=== PATIENT | male | born 1935 | race Caucasian/White ===

== ENCOUNTER 2016-07-22 10:53 | Observation (INO) | payer OTHER, MEDICARE ==
[2016-07-22] MEDS ORDERED: Zithromax 500 MG/ 250 ML NaCl Premix 250 ML IV ONE ×2 (11:01→11:12)
[2016-07-22] MEDS ORDERED: solu-MEDROL 125 MG IV ONE (11:01)
[2016-07-22] MEDS ORDERED: PROVENTIL Solution 2.5 MG/0.5 ML IH ONE ×2 (11:01→11:23)
[2016-07-22] MEDS ORDERED: ROCEPHIN 1 Gm-D5w 50 ml Bag** 50 ML IV ONE ×2 (11:01→11:12)
[2016-07-22] MEDS ORDERED: Sodium Chloride 3 ML UD NEBULES IH ONE (11:01)
[2016-07-22] MEDS ORDERED: Sodium Chloride 0.9% 1000 ML 1,000 ML IV STA (11:01)
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
[2016-07-22] MEDS ORDERED: solu-MEDROL 125 MG ONE (11:12)
[2016-07-22] MEDS ORDERED: Sodium Chloride 0.9% 1000 ML 1,000 ML ONE (11:12)
[2016-07-22 11:22] LABS: A-aADO2 34; ALLEN TEST OK? YES; ARTERIAL BLD GAS O2 SATURATION 97.4 % (95-100); ARTERIAL BLOOD GAS BASE EXCESS 1.1 (-2.0-2.0); ARTERIAL BLOOD GAS FIO2 21 %; ARTERIAL BLOOD GAS PO2 79 mmHg (75-100); ARTERIAL BLOOD GAS pH 7.51 (7.35-7.45)
[2016-07-22 11:27] LABS: Mean Cell Volume 86.4 fl (78-100); Mean Corpuscular Hemoglobin 28.7 pg (26-32); Mean Platelet Volume 10.7 fl (6-9.5); Platelet Count 178 K/mm3 (150-450); Red Blood Count 4.99 M/mm3 (4.1-5.6); White Blood Count 6.9 K/mm3 (4.0-10.5)
--- NOTE | 2016-07-22 11:37 | XRAY ---
Short of breath. Comparison: September 02, 2014. Portable chest again hyperinflated with bilateral mid to lower lung infiltrate/atelectasis similar to the prior study. No consolidation/large effusion. Heart is not enlarged. Bony thorax intact.
[2016-07-22 11:48] LABS: ALBUMIN 3.6 g/dL (3.4-5.0); ALKALINE PHOSPHATASE 66 U/L (46-116); ANION GAP 16.5 MEQ/L (5-15); BILIRUBIN,TOTAL 0.3 mg/dL (0.2-1.0); BLOOD UREA NITROGEN 13 mg/dL (9-20); CHLORIDE 102 mEq/L (98-107); Carbon Dioxide 23.1 mEq/L (21-32); Glucose 122 MG/DL (70-110); MAGNESIUM 1.6 mg/dL (1.8-2.4); Potassium 3.9 mEq/L (3.5-5.1); SGOT/AST 24 U/L (15-37); SGPT/ALT 27 U/L (12-78); SODIUM 138 mEq/L (136-145); Total Protein 6.6 gm/dL (6.4-8.2)
[2016-07-22 11:49] LABS: TROPONIN < 0.017 ng/ml (0.000-0.056)
[2016-07-22 11:59] LABS: BAND 1 % (0.0-2.0); Platelet Estimate NORMAL (NORMAL); Total Cells Counted 100; Toxic Granulation 1+
[2016-07-22] MEDS ORDERED: Xopenex 1.25 MG/0.5 ML UD NEBULE IH PRN (12:30)
[2016-07-22] MEDS ORDERED: TYLENOL 325 MG PO PRN (12:31)
[2016-07-22] MEDS: DUONEB 0.5-3 MG/3 ml Neb IH SCH ×3 (14:35→23:02)
[2016-07-22] MEDS: Sodium Chloride 0.9% 1000 ML 1,000 ML IV SCH (16:25)
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
[2016-07-22] MEDS: solu-MEDROL 125 MG IV SCH (17:46)
[2016-07-22] MEDS: PATIENT OWN MEDICATION IH SCH (19:00)
[2016-07-22] MEDS: Pepcid 20 MG VIAL IV SCH (23:04)
[2016-07-23] MEDS: solu-MEDROL 125 MG IV SCH ×4 (01:01→17:17)
[2016-07-23 05:43] LABS: BASOPHIL % 0.2 % (0.0-0.4); Granulocytes % 92.7 % (36.0-66.0); Lymphocytes % 4.9 % (24.0-44.0); Mean Cell Volume 86.9 fl (78-100); Mean Corpuscular Hemoglobin 28.3 pg (26-32); Mean Platelet Volume 10.8 fl (6-9.5); Monocytes % 2.2 % (0.0-12.0); Platelet Count 163 K/mm3 (150-450); Red Cell Distribution Width 13.9 % (11.5-14.0); White Blood Count 5.1 K/mm3 (4.0-10.5)
[2016-07-23 05:47] LABS: ANION GAP 17.6 MEQ/L (5-15); BLOOD UREA NITROGEN 15 mg/dL (9-20); CHLORIDE 107 mEq/L (98-107); Carbon Dioxide 22.4 mEq/L (21-32); Glucose 203 MG/DL (70-110); SODIUM 143 mEq/L (136-145)
[2016-07-23] MEDS: Sodium Chloride 0.9% 1000 ML 1,000 ML IV SCH ×2 (05:47→19:42)
[2016-07-23] MEDS: DUONEB 0.5-3 MG/3 ml Neb IH SCH ×5 (05:49→18:46)
[2016-07-23] MEDS: PATIENT OWN MEDICATION IH SCH ×2 (06:35→18:46)
--- NOTE | 2016-07-23 07:36 | PCM.NOTE ---
Date and Time: 07/23/16733 Subjective Assessment: doing well at this time, still has some cough with yellow sputum and wheezing. Objective Exam General Appearance: no apparent distress, alert Respiratory Exam: prolonged expirations, wheezing Cardiovascular Exam: regular rate/rhythm, normal heart sounds Gastrointestinal/Abdomen Exam: soft, No tenderness, No mass Extremity Exam: normal inspection, normal range of motion OBJECTIVE DATA Vital Signs: Vital Signs - 24 hr Temp Pulse Resp BP Pulse Ox 07/23/16 07:22 98.2 F 66 20 178/83 98 07/23/16 06:37 65 18 98 07/23/16 04:00 97.9 F 76 15 166/80 93 L 07/23/16 00:00 98.4 F 77 18 138/55 5 L 07/22/16 23:00 74 18 95 07/22/16 20:00 98.1 F 88 16 148/72 96 07/22/16 19:00 80 20 97 07/22/16 16:28 98.0 F 94 H 18 115/56 95 07/22/16 16:03 98.0 F 98 H 18 115/56 94 L 07/22/16 14:43 97 H 22 94 L 07/22/16 14:22 98.5 F 92 H 20 161/76 95 07/22/16 13:46 98.5 F 87 18 147/85 97 07/22/16 13:29 87 18 147/85 97 07/22/16 13:09 94 L 07/22/16 12:38 101 H 20 164/92 94 L 07/22/16 12:27 98.5 F 92 H 18 161/76 95 07/22/16 12:07 105 H 18 148/79 97 07/22/16 11:23 95 H 24 96 07/22/16 11:00 28 H 94 L 07/22/16 10:54 100.0 F 83 28 H 149/93 94 L Oxygen-Last 24 hours O2 Percentage 2 Liters = 28% O2 Percentage 2 Liters = 28% O2 Percentage 2 Liters = 28% O2 Percentage 2 Liters = 28% O2 Percentage 2 Liters = 28% O2 Percentage 2 Liters = 28% O2 Percentage 2 Liters = 28% O2 Percentage 2 Liters = 28% O2 Percentage 2 Liters = 28% O2 Percentage 2 Liters = 28% O2 Percentage 2 Liters = 28% O2 Percentage 2 Liters = 28% O2 Percentage 2 Liters = 28% Pain Assessment - Last Documented Pain Scale Used FLACC Intake and Output: Intake & Output 07/20/16 07/21/16 07/22/16 07/23/16 11:59 11:59 11:59 11:59 Intake Total 2187 Balance 2187 Weight 89.584 kg Lab Results: Lab Results-Last 24 Hours 07/23/16 07/23/16 Range/Units 05:15 05:15 WBC 5.1 (4.0-10.5) K/mm3 RBC 4.80 (4.1-5.6) M/mm3 Hgb 13.6 (12.5-18.0) gm/dl Hct 41.7 L (42-50) % MCV 86.9 (78-100) fl MCH 28.3 (26-32) pg MCHC 32.6 (32-36) g/dl RDW 13.9 (11.5-14.0) % Plt Count 163 (150-450) K/mm3 MPV 10.8 H (6-9.5) fl Gran % 92.7 H (36.0-66.0) % Lymphocytes % 4.9 L (24.0-44.0) % Monocytes % 2.2 (0.0-12.0) % Eosinophils % 0.0 (0.00-5.0) % Basophils % 0.2 (0.0-0.4) % Basophils # 0.01 (0-0.4) Sodium 143 (136-145) mEq/L Potassium 4.0 (3.5-5.1) mEq/L Chloride 107 (98-107) mEq/L Carbon Dioxide 22.4 (21-32) mEq/L Anion Gap 17.6 H (5-15) MEQ/L BUN 15 (9-20) mg/dL Creatinine 1.17 (0.55-1.30) mg/dl Estimated GFR > 60 ML/MIN Glucose 203 H (70-110) MG/DL Calcium 8.2 L (8.5-10.1) mg/dL Assessment/Plan (1) Acute exacerbation of chronic obstructive airways disease Current Visit: No Status: Acute Assessment & Plan: continue current management Code(s): J44.1 - CHRONIC OBSTRUCTIVE PULMONARY DISEASE W (ACUTE) EXACERBATION (2) Diabetes Current Visit: Yes Status: Acute Assessment & Plan: SSI ordered for coverage Code(s): E11.9 - TYPE 2 DIABETES MELLITUS WITHOUT COMPLICATIONS
[2016-07-23 07:46] LABS: Total Cells Counted 100
[2016-07-23 07:47] LABS: Platelet Estimate NORMAL (NORMAL); Toxic Granulation 2+
[2016-07-23] MEDS: NovoLOG Insulin SQ PRN ×3 (07:47→21:43)
[2016-07-23] MEDS: NORVASC 5 MG PO SCH (08:15)
[2016-07-23] MEDS ORDERED: NON-FORMULARY ITEM (Amlodipine Besylate [Norvasc] 2.5 MG) PO SCH (10:00)
[2016-07-23] MEDS ORDERED: NON-FORMULARY ITEM (Omeprazole [Prilosec] 40 MG) PO SCH (10:00)
[2016-07-23] MEDS ORDERED: Zithromax 500 MG/ 250 ML NaCl Premix 250 ML IV SCH (10:00)
[2016-07-23] MEDS ORDERED: ROCEPHIN 1 Gm-D5w 50 ml Bag** 50 ML IV SCH (10:00)
[2016-07-23] MEDS ORDERED: Protonix 40MG Tablet PO SCH (10:00)
[2016-07-23] MEDS: Pepcid 20 MG VIAL IV SCH ×2 (10:24→21:32)
[2016-07-24] MEDS: DUONEB 0.5-3 MG/3 ml Neb IH SCH ×3 (00:10→06:34)
[2016-07-24] MEDS: solu-MEDROL 125 MG IV SCH ×2 (00:13→05:25)
[2016-07-24] MEDS: PATIENT OWN MEDICATION IH SCH (06:37)
[2016-07-24 07:28] VITALS: BP 157/74; PULSE 79; O2SAT 94
--- NOTE | 2016-07-24 08:24 | PCM.DS ---
Discharge Summary Date of Admission: 07/22/16 13:30 Admitting Physician: COURTNEY MENDOZA Primary Care Provider: ARNOLDO SANDOVAL PsyD Allergies Allergies No Known Drug Allergies Allergy (Unverified 07/22/16 11:01) Hospital Summary - Hospital Course Hospital Course: patient was admitted with copd exacerbation, early pneumonia on chest xray. he improved with IV abx, steroids and nebulizer treatments. at the date of discharge his lungs are much more clear and he has removed his own oxygen. he is in no distress, afebrile and states he feels well. - Vitals & Intake/Output Vital Signs: Vital Signs Temperature 97.8 F 07/24/16 07:28 Pulse Rate 79 07/24/16 07:28 Respiratory Rate 19 07/24/16 07:28 Blood Pressure 157/74 07/24/16 07:28 O2 Sat by Pulse Oximetry 94 L 07/24/16 07:28 Oxygen-Last Documented O2 Percentage 2 Liters = 28% Intake & Output: Intake & Output 07/21/16 07/22/16 07/23/16 07/24/16 11:59 11:59 11:59 11:59 Intake Total 2537 3388 Balance 2537 3388 Weight 89.584 kg 90.718 kg - Lab Result Diagrams: 07/23/16 05:15 07/23/16 05:15 Lab Results-Last 24 Hrs: Accuchecks Date 07/24/16 Date 07/23/1607/23/16 Date 07/23/16 Time 07:30 Time 22:00 Time 17:16 Time 11:15 Accucheck Value: 151 Accucheck Value: 203 Accucheck Value: 251 Accucheck Value: 171 Accucheck Value: 171 Micro Results-Entire Visit: Accuchecks Date 07/24/1607/23/1607/23/1607/23/16 Time 07:30 Time 22:00 Time 17:16 Time 11:15 Accucheck Value: 151 Accucheck Value: 203 Accucheck Value: 251 Accucheck Value: 171 Accucheck Value: 171 - Procedures and Test Procedures and Tests throughout Hospitalization: Therapy Orders & Screens 07/22/16 12:27 Oxygen NASAL CANNULA 2 lpm Comment: Diagnosis: Shortness of Breath Respiratory Therapy Consult ROUTINE Comment: Reason For Exam: Diagnosis: Shortness of Breath 07/22/16 14:39 Respiratory Nebulizer UD Comment: XOPENEX Q2PRN Diagnosis: Shortness of Breath 07/22/16 15:00 Respiratory Nebulizer Q4H Comment: DUONEB Q4 Diagnosis: Shortness of Breath 07/22/16 19:00 Respiratory MDI BID Comment: SYMICORT BID Diagnosis: Shortness of Breath Discharge Exam General Appearance: no apparent distress, alert Respiratory Exam: prolonged expirations, wheezing Cardiovascular Exam: regular rate/rhythm, normal heart sounds Gastrointestinal/Abdomen Exam: soft, No tenderness, No mass Extremity Exam: normal inspection, normal range of motion Final Diagnosis/Problem List - Final Discharge Diagnosis/Problem (1) Acute exacerbation of chronic obstructive airways disease Current Visit: No Status: Acute Assessment & Plan: home on po prednisone and cipro, continue nebs at home. (2) Diabetes Current Visit: Yes Status: Acute Assessment & Plan: resume po meds - Discharge Disposition: Home, Self-Care Condition: Stable Prescriptions: New Ciprofloxacin HCl [Cipro] 500 mg PO BID #20 tablet Prednisone 20 mg [Deltasone 20 mg] 20 mg PO UD #18 tablet Continue Ipratropium/Albuterol Sulfate [Combivent Respimat Common Canister] 1 puff IN QID Budesonide/Formoterol Fumarate [Symbicort 160-4.5 Mcg Inhaler] 2 puff IH BID Albuterol Sulfate [Proventil Hfa] 2 puff IN Q6H Amlodipine Besylate [Norvasc] 2.5 mg PO DAILY Omeprazole [Prilosec] 40 mg PO DAILY Instructions: Pneumonia -- Adult Follow up with: ARNOLDO SANDOVAL PsyD [Primary Care Provider] - Forms: Patient Portal Information
[2016-07-24] MEDS: NORVASC 5 MG PO SCH (09:33)
[2016-07-24] MEDS ORDERED: PREVNAR 13 SYRINGE IM ONE (10:00)
== END 2016-07-24 10:10 | disposition home or self-care (01) ==
LOC: SUPCPDRO 10:53 → ED 10:53 → MED SURG 13:30
PROVIDERS: ADMIT Family Medicine; ATTEND Family Medicine
DX: J44.1 Chronic obstructive pulmonary disease with (acute) exacerbation (principal); E11.9 Type 2 diabetes mellitus without complications; K21.9 Gastro-esophageal reflux disease without esophagitis; Z79.899 Other long term (current) drug therapy
CPT/HCPCS: 36000; 36415; 36600; 71010; 80048; 80053; 82375; 82803; 82962; 83036; 83735; 83880; 84484; 85025; 87040; 87070; 90670; 93005; 93041; 93268; 94640; 94760; 96360; 96361; 96365; 96366; 96367; 96374; 99285; G0009; G0378; J0456; J0696; J2930

== ENCOUNTER 2016-07-25 08:11 | Inpatient (IN) | payer MEDICARE, SELFPAY ==
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
[2016-07-25] MEDS ORDERED: solu-MEDROL 125 MG IV ONE (08:58)
[2016-07-25] MEDS ORDERED: DUONEB 0.5-3 MG/3 ml Neb IH ONE ×2 (08:58→09:15)
[2016-07-25] MEDS ORDERED: solu-MEDROL 125 MG ONE (09:08)
[2016-07-25 09:58] LABS: Mean Cell Volume 87.1 fl (78-100); Mean Corpuscular Hemoglobin 28.4 pg (26-32); Mean Platelet Volume 10.9 fl (6-9.5); Platelet Count 181 K/mm3 (150-450); Red Blood Count 4.97 M/mm3 (4.1-5.6); Red Cell Distribution Width 14.3 % (11.5-14.0); White Blood Count 15.5 K/mm3 (4.0-10.5)
[2016-07-25 10:12] LABS: ALBUMIN 3.3 g/dL (3.4-5.0); ALKALINE PHOSPHATASE 65 U/L (46-116); ANION GAP 16.9 MEQ/L (5-15); BILIRUBIN,TOTAL 0.4 mg/dL (0.2-1.0); BLOOD UREA NITROGEN 17 mg/dL (9-20); CHLORIDE 104 mEq/L (98-107); Carbon Dioxide 25.4 mEq/L (21-32); Glucose 131 MG/DL (70-110); Potassium 3.9 mEq/L (3.5-5.1); SGOT/AST 30 U/L (15-37); SGPT/ALT 31 U/L (12-78); SODIUM 142 mEq/L (136-145); Total Protein 6.1 gm/dL (6.4-8.2)
[2016-07-25 10:27] LABS: BAND 4 % (0.0-2.0); Platelet Estimate NORMAL (NORMAL); Total Cells Counted 100
[2016-07-25] MEDS ORDERED: PROVENTIL 2.5 MG/3 ML NEB IH ONE ×2 (10:32→10:49)
[2016-07-25] MEDS ORDERED: ROCEPHIN 1 Gm-D5w 50 ml Bag** 50 ML IV ONE ×2 (10:32→10:55)
[2016-07-25] MEDS ORDERED: Tamiflu 75MG Capsule PO ONE ×2 (10:45→10:55)
[2016-07-25] MEDS ORDERED: DUONEB 0.5-3 MG/3 ml Neb IH PRN (11:51)
[2016-07-25] MEDS ORDERED: Zithromax 500 MG/ 250 ML NaCl Premix 250 ML IV SCH (12:00)
[2016-07-25] MEDS: solu-MEDROL 125 MG IV SCH ×2 (12:17→17:43)
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
[2016-07-25] MEDS: Robitussin AC Syrup Unit Dose Cup PO PRN (17:43)
[2016-07-25] MEDS: DUONEB 0.5-3 MG/3 ml Neb IH SCH ×2 (20:42→23:47)
--- NOTE | 2016-07-25 22:24 | XRAY ---
Indication: Dyspnea. Comparison: July 22, 2016 PA/lateral chest unchanged again hyperinflated with bilateral mid to lower lung infiltrates/atelectasis. Heart is not enlarged. No new cardiopulmonary abnormalities.
[2016-07-25] MEDS: Tamiflu 75MG Capsule PO SCH (22:50)
[2016-07-26] MEDS: solu-MEDROL 125 MG IV SCH ×5 (00:41→23:03)
[2016-07-26] MEDS: DUONEB 0.5-3 MG/3 ml Neb IH SCH ×6 (04:51→23:07)
[2016-07-26] MEDS: PROVENTIL 2.5 MG/3 ML NEB IH PRN (04:58)
[2016-07-26 05:55] LABS: Mean Cell Volume 86.7 fl (78-100); Mean Corpuscular Hemoglobin 28.6 pg (26-32); Mean Platelet Volume 10.8 fl (6-9.5); Platelet Count 171 K/mm3 (150-450); Red Blood Count 5.04 M/mm3 (4.1-5.6); Red Cell Distribution Width 13.9 % (11.5-14.0); White Blood Count 9.2 K/mm3 (4.0-10.5)
[2016-07-26 06:13] LABS: ANION GAP 13.2 MEQ/L (5-15); BLOOD UREA NITROGEN 20 mg/dL (9-20); CHLORIDE 106 mEq/L (98-107); Carbon Dioxide 28.2 mEq/L (21-32); Glucose 197 MG/DL (70-110); Potassium 4.4 mEq/L (3.5-5.1); SODIUM 143 mEq/L (136-145)
[2016-07-26 07:05] LABS: Total Cells Counted 100
[2016-07-26 07:06] LABS: Platelet Estimate NORMAL (NORMAL)
[2016-07-26] MEDS: PATIENT OWN MEDICATION PO SCH (08:45)
[2016-07-26] MEDS ORDERED: TYLENOL 325 MG PO PRN (09:02)
[2016-07-26] MEDS: ROCEPHIN 1 Gm-D5w 50 ml Bag** 50 ML IV SCH (09:11)
[2016-07-26] MEDS: Tamiflu 75MG Capsule PO SCH ×2 (09:14→22:57)
[2016-07-26] MEDS: Protonix 40MG Tablet PO SCH (09:14)
[2016-07-26] MEDS ORDERED: NON-FORMULARY ITEM (Amlodipine Besylate [Norvasc] 2.5 MG) PO SCH (10:00)
[2016-07-26] MEDS ORDERED: NON-FORMULARY ITEM (Omeprazole [Prilosec] 40 MG) PO SCH (10:00)
[2016-07-26] MEDS ORDERED: NORVASC 5 MG PO SCH (10:00)
[2016-07-26] MEDS ORDERED: NON-FORMULARY ITEM (Budesonide/Formoterol Fumarate [Symbicort 160-4.5 Mcg Inhaler] 2 PUFF) IH SCH (10:00)
--- NOTE | 2016-07-26 16:36 | PCM.NOTE ---
Date and Time: 07/26/16 163 Subjective Assessment: Pt feeling well, still on NC. Joya po fine. Concerned about his BS, at home is well controlled on metformin. - Review of Systems Constitutional: No Fever Respiratory: Cough Objective Exam General Appearance: no apparent distress Neurologic Exam: alert, oriented x 3, cooperative Skin Exam: normal color, warm, dry Respiratory Exam: diminished breath sounds, No crackles/rales, No rhonchi, No wheezing Cardiovascular Exam: regular rate/rhythm, normal heart sounds, No murmur Extremity Exam: No pedal edema, No swelling OBJECTIVE DATA Vital Signs: Vital Signs - 24 hr Temp Pulse Resp BP Pulse Ox 07/26/16 15:44 98 F 80 20 158/80 93 L 07/26/16 12:00 74 18 96 07/26/16 10:57 98 F 78 22 160/74 96 07/26/16 10:00 22 07/26/16 08:00 84 20 96 07/26/16 07:19 98.1 F 86 22 148/80 94 L 07/26/16 06:00 22 07/26/16 04:58 75 24 96 07/26/16 04:00 98.2 F 75 24 191/84 96 07/26/16 02:00 20 07/26/16 00:00 97.8 F 75 24 162/84 95 07/25/16 23:47 75 24 95 07/25/16 22:00 21 07/25/16 20:42 72 24 97 07/25/16 20:00 97.9 F 69 21 162/84 95 07/25/16 18:00 22 Oxygen-Last 24 hours O2 Percentage 3 Liters = 32% O2 Percentage 3 Liters = 32% O2 Percentage 3 Liters = 32% O2 Percentage 3 Liters = 32% O2 Percentage 3 Liters = 32% O2 Percentage 3 Liters = 32% Pain Assessment - Last Documented Pain Intensity 1 Pain Scale Used 0-10 Pain Scale Intake and Output: Intake & Output 07/24/16 07/25/16 07/26/16 07/27/16 11:59 11:59 11:59 11:59 Intake Total 1220 360 Output Total 800 Balance 420 360 Weight 88.405 kg Lab Results: Lab Results-Last 24 Hours 07/26/16 07/26/16 Range/Units 05:15 05:20 WBC 9.2 (4.0-10.5) K/mm3 RBC 5.04 (4.1-5.6) M/mm3 Hgb 14.4 (12.5-18.0) gm/dl Hct 43.7 (42-50) % MCV 86.7 (78-100) fl MCH 28.6 (26-32) pg MCHC 33.0 (32-36) g/dl RDW 13.9 (11.5-14.0) % Plt Count 171 (150-450) K/mm3 MPV 10.8 H (6-9.5) fl Segmented Neutrophils 93 H (36.-66.) % Lymphocytes (Manual) 5 L (24-44) % Monocytes (Manual) 2 (0.0-12.0) % Differential Comment NORMAL Platelet Estimate NORMAL (NORMAL) Sodium 143 (136-145) mEq/L Potassium 4.4 (3.5-5.1) mEq/L Chloride 106 (98-107) mEq/L Carbon Dioxide 28.2 (21-32) mEq/L Anion Gap 13.2 (5-15) MEQ/L BUN 20 (9-20) mg/dL Creatinine 1.08 (0.55-1.30) mg/dl Estimated GFR > 60 ML/MIN Glucose 197 H (70-110) MG/DL Calcium 8.2 L (8.5-10.1) mg/dL Multi-Disciplinary Progress Notes: Multi-Disciplinary Progress Notes 07/25/16 19:27 Case Management Note by Rylee Arroyo DISCHARGE PLAN REVIEWED. NORMALLY LIVES AT HOME WITH HIS SPOUSE AND GROWN CHILD. NO DME OR SERVICES AT HOME OTHER THAN HIS DIABETIC TESTING DEVICE. REFUSES LAY CAREGIVER. AT THIS TIME, PLAN TO RETURN HOME TO PRE EPISODIC LEVEL OF FUNCTION. NOTE THAT PT HAS BEEN IN HOSPITAL SEVERAL TIMES THIS MONTH. WILL CONTINUE TO MONITOR FOR ALL D/C NEEDS AND SERVICES. Initialized on 07/25/16 19:27 - END OF NOTE Assessment/Plan (1) COPD with exacerbation Current Visit: Yes Status: Acute Assessment & Plan: On rocephin, zithromax, and IV steroids. Improving. Will start weaning down the steroids. Would expect several more day stay, as with his last 2 d stay he went home and only stayed a matter of hours before being re-admitted with COPD exacerbation and Influenza A. 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 accuchecks and SS insulin prn. Code(s): E11.9 - TYPE 2 DIABETES MELLITUS WITHOUT COMPLICATIONS (4) Arrhythmia Current Visit: Yes Status: Acute Qualifiers: Arrhythmia type: unspecified cardiac arrhythmia Qualified Code(s): I49.9 - Cardiac arrhythmia, unspecified Assessment & Plan: stable, will go ahead and take pt off telemetry. RRR today. EKG from ER appeared to have PACs. Code(s): I49.9 - CARDIAC ARRHYTHMIA, UNSPECIFIED (5) HTN (hypertension) Current Visit: Yes Status: Acute Assessment & Plan: BP elevated here, will increase amlodipine from 2.5mg to 5mg po daily. Code(s): I10 - ESSENTIAL (PRIMARY) HYPERTENSION
[2016-07-26] MEDS: NovoLOG Insulin SQ PRN ×2 (17:06→23:21)
[2016-07-26] MEDS: ENOXAPARIN SODIUM SQ SCH (18:38)
[2016-07-27] MEDS: DUONEB 0.5-3 MG/3 ml Neb IH SCH ×6 (03:00→23:22)
[2016-07-27] MEDS ORDERED: solu-MEDROL 40 MG ONE (05:27)
[2016-07-27] MEDS: solu-MEDROL 125 MG IV SCH (05:35)
[2016-07-27] MEDS: PATIENT OWN MEDICATION PO SCH ×2 (06:55→18:39)
[2016-07-27] MEDS: Glucotrol Xl 5 MG PO SCH (08:21)
--- NOTE | 2016-07-27 08:35 | PCM.NOTE ---
Date and Time: 07/27/16 0834 Subjective Assessment: no new changes, thinks he is feeling a little better today. still has significant cough, wheezing and dyspnea Objective Exam General Appearance: no apparent distress, alert Skin Exam: normal color, warm, dry Respiratory Exam: normal breath sounds, lungs clear, No respiratory distress Cardiovascular Exam: regular rate/rhythm, normal heart sounds Gastrointestinal/Abdomen Exam: soft, No tenderness, No mass Extremity Exam: normal inspection, normal range of motion OBJECTIVE DATA Vital Signs: Vital Signs - 24 hr Temp Pulse Resp BP Pulse Ox 07/27/16 07:46 97.9 F 65 18 186/81 94 L 07/27/16 06:55 56 L 18 94 L 07/27/16 06:00 18 07/27/16 04:00 97.9 F 83 21 141/84 94 L 07/27/16 02:00 18 07/27/16 00:00 97.7 F 70 20 138/76 95 07/26/16 23:13 76 20 95 07/26/16 22:00 20 07/26/16 20:28 70 20 94 L 07/26/16 20:00 97.7 F 76 20 138/76 95 07/26/16 17:48 20 07/26/16 16:00 78 20 96 07/26/16 15:44 98 F 80 20 158/80 93 L 07/26/16 14:00 20 07/26/16 12:00 74 18 96 07/26/16 10:57 98 F 78 22 160/74 96 07/26/16 10:00 22 Oxygen-Last 24 hours O2 Percentage 2 Liters = 28% O2 Percentage 3 Liters = 32% O2 Percentage 2 Liters = 28% O2 Percentage 3 Liters = 32% O2 Percentage 3 Liters = 32% Pain Assessment - Last Documented Pain Intensity 1 Pain Scale Used FLACC Intake and Output: Intake & Output 07/24/16 07/25/16 07/26/16 07/27/16 11:59 11:59 11:59 11:59 Intake Total 1220 1320 Output Total 800 Balance 420 1320 Weight 88.405 kg Lab Results: Accuchecks Date 07/26/16 Date 07/26/16 Time 22:00 Time 16:30 Accucheck Value: 227 Accucheck Value: 236 Lab Results-Last 24 Hours 03/05/17 Range/Units 05:15 Hemoglobin A1c 6.8 H (4.5-6.2) Assessment/Plan (1) COPD with exacerbation Current Visit: Yes Status: Acute Assessment & Plan: continue current management, no changes Code(s): J44.1 - CHRONIC OBSTRUCTIVE PULMONARY DISEASE W (ACUTE) EXACERBATION (2) Influenza A Current Visit: Yes Status: Acute Assessment & Plan: continue tamiflu Code(s): J10.1 - FLU DUE TO OTH IDENT INFLUENZA VIRUS W OTH RESP MANIFEST (3) Pneumonia Current Visit: Yes Status: Acute Code(s): J18.9 - PNEUMONIA, UNSPECIFIED ORGANISM (4) Diabetes Current Visit: No Status: Chronic Qualifiers: Diabetes mellitus type: type 2 Diabetes mellitus complication status: with ophthalmic complications Diabetes mellitus complication detail: with other ophthalmic complication Diabetes mellitus termite renewal inspector insulin use: without retirement use Qualified Code(s): 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
[2016-07-27] MEDS: Protonix 40MG Tablet PO SCH (09:14)
[2016-07-27] MEDS: ENOXAPARIN SODIUM SQ SCH (09:14)
[2016-07-27] MEDS: NORVASC 5 MG PO SCH (09:14)
[2016-07-27] MEDS: ROCEPHIN 1 Gm-D5w 50 ml Bag** 50 ML IV SCH (09:14)
[2016-07-27] MEDS: Tamiflu 75MG Capsule PO SCH ×2 (09:15→22:06)
[2016-07-27] MEDS: Robitussin AC Syrup Unit Dose Cup PO PRN (09:51)
[2016-07-27] MEDS: Zithromax 500 MG/ 250 ML NaCl Premix 250 ML IV SCH (09:51)
[2016-07-27] MEDS ORDERED: ENOXAPARIN SODIUM SQ SCH (10:00)
[2016-07-27] MEDS: solu-MEDROL 40 MG IV SCH ×2 (11:32→18:21)
[2016-07-27] MEDS ORDERED: Glucotrol Xl 2.5 MG PO ONE (17:00)
[2016-07-28] MEDS: solu-MEDROL 40 MG IV SCH ×2 (00:54→05:47)
[2016-07-28] MEDS: DUONEB 0.5-3 MG/3 ml Neb IH SCH ×6 (06:40→23:36)
--- NOTE | 2016-07-28 09:03 | PCM.NOTE ---
Date and Time: 07/28/16 09 Subjective Assessment: breathing is not doing well today, he is short of breath and feels poorly. no other new complaints Objective Exam General Appearance: no apparent distress, alert Respiratory Exam: wheezing Cardiovascular Exam: regular rate/rhythm, normal heart sounds Gastrointestinal/Abdomen Exam: soft, No tenderness, No mass Extremity Exam: normal inspection, normal range of motion OBJECTIVE DATA Vital Signs: Vital Signs - 24 hr Temp Pulse Resp BP Pulse Ox 07/28/16 07:49 98.0 F 62 18 179/84 96 07/28/16 07:00 74 18 94 L 07/28/16 06:00 17 07/28/16 04:00 97.4 F 63 20 170/88 92 L 07/28/16 02:00 18 07/28/16 00:00 97.8 F 60 21 182/89 93 L 07/27/16 23:29 60 22 93 L 07/27/16 22:00 22 07/27/16 19:34 71 22 145/69 91 L 07/27/16 19:10 71 22 91 L 07/27/16 15:24 98.2 F 73 18 161/81 92 L 07/27/16 15:05 71 18 93 L 07/27/16 12:00 98.1 F 66 18 161/74 94 L 07/27/16 10:58 66 20 94 L Oxygen-Last 24 hours O2 Percentage 2 Liters = 28% O2 Percentage 3 Liters = 32% O2 Percentage 3 Liters = 32% Pain Assessment - Last Documented Pain Intensity 0 Pain Scale Used [facility] Intake and Output: Intake & Output 07/25/16 07/26/16 07/27/16 07/28/16 11:59 11:59 11:59 11:59 Intake Total 1220 1800 2060 Output Total 800 Balance 420 1800 2060 Weight 88.405 kg 88.405 kg Lab Results: Accuchecks Date 07/27/16 Date 07/27/16 Time 22:00 Time 11:30 Accucheck Value: 165 Accucheck Value: 104 Accucheck Value: 231 Assessment/Plan (1) COPD with exacerbation Current Visit: Yes Status: Acute Assessment & Plan: increase solu medrol back to 80mg IV q6hrs, continue rocephin/zithromax and nebs Code(s): J44.1 - CHRONIC OBSTRUCTIVE PULMONARY DISEASE W (ACUTE) EXACERBATION (2) Influenza A Current Visit: Yes Status: Acute Code(s): J10.1 - FLU DUE TO OTH IDENT INFLUENZA VIRUS W OTH RESP MANIFEST (3) Pneumonia Current Visit: Yes Status: Acute Code(s): J18.9 - PNEUMONIA, UNSPECIFIED ORGANISM (4) Diabetes Current Visit: No Status: Chronic Qualifiers: Diabetes mellitus type: type 2 Diabetes mellitus complication status: with ophthalmic complications Diabetes mellitus complication detail: with other ophthalmic complication Diabetes mellitus supervisor microfilm duplicating unit insulin use: without detention use Qualified Code(s): 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
[2016-07-28] MEDS: Protonix 40MG Tablet PO SCH (09:15)
[2016-07-28] MEDS: ENOXAPARIN SODIUM SQ SCH (09:15)
[2016-07-28] MEDS: NORVASC 5 MG PO SCH (09:15)
[2016-07-28] MEDS: Glucotrol Xl 5 MG PO SCH (09:15)
[2016-07-28] MEDS: ROCEPHIN 1 Gm-D5w 50 ml Bag** 50 ML IV SCH (09:15)
[2016-07-28] MEDS: Tamiflu 75MG Capsule PO SCH ×2 (09:15→22:03)
[2016-07-28] MEDS: Zithromax 500 MG/ 250 ML NaCl Premix 250 ML IV SCH (09:16)
[2016-07-28] MEDS: solu-MEDROL 125 MG IV SCH ×3 (11:26→23:55)
[2016-07-28] MEDS: NovoLOG Insulin SQ PRN ×2 (16:28→23:55)
[2016-07-29] MEDS: DUONEB 0.5-3 MG/3 ml Neb IH SCH ×6 (03:00→23:18)
[2016-07-29] MEDS: solu-MEDROL 125 MG IV SCH ×4 (05:19→23:55)
[2016-07-29] MEDS: PATIENT OWN MEDICATION PO SCH ×2 (05:40→18:59)
[2016-07-29 06:07] LABS: Mean Cell Volume 86.3 fl (78-100); Mean Corpuscular Hemoglobin 28.6 pg (26-32); Mean Platelet Volume 10.6 fl (6-9.5); Platelet Count 192 K/mm3 (150-450); Red Blood Count 4.75 M/mm3 (4.1-5.6); Red Cell Distribution Width 13.5 % (11.5-14.0); White Blood Count 11.3 K/mm3 (4.0-10.5)
[2016-07-29 06:27] LABS: ANION GAP 11.9 MEQ/L (5-15); BLOOD UREA NITROGEN 28 mg/dL (9-20); CHLORIDE 105 mEq/L (98-107); Carbon Dioxide 28.6 mEq/L (21-32); Glucose 187 MG/DL (70-110); SODIUM 142 mEq/L (136-145)
[2016-07-29 07:24] LABS: ATYPICAL LYMPHS 4 %; BAND 2 % (0.0-2.0); Platelet Estimate NORMAL (NORMAL); Total Cells Counted 100; Toxic Granulation 1+
[2016-07-29] MEDS: Glucotrol Xl 5 MG PO SCH (08:40)
--- NOTE | 2016-07-29 08:49 | PCM.NOTE ---
Date and Time: 07/29/16 0847 Subjective Assessment: patient with increased oxygen requirements this morning, states he feels much better today and denies any significant cough or shortness of breath. states he feels great and doesn't understand why his oxygen level is low Objective Exam General Appearance: no apparent distress, alert Respiratory Exam: wheezing (minimal wheezing, good air exchange. no rales or crackles) Cardiovascular Exam: regular rate/rhythm, normal heart sounds Gastrointestinal/Abdomen Exam: soft, No tenderness, No mass Extremity Exam: normal inspection, normal range of motion OBJECTIVE DATA Vital Signs: Vital Signs - 24 hr Temp Pulse Resp BP Pulse Ox 07/29/16 08:00 97.1 F 71 20 197/93 90 L 07/29/16 06:00 22 07/29/16 05:41 64 22 90 L 07/29/16 04:00 98.1 F 88 22 182/78 90 L 07/29/16 02:00 22 07/29/16 00:00 97.2 F 75 22 172/91 93 L 07/28/16 23:36 70 20 93 L 07/28/16 22:00 22 07/28/16 20:44 70 20 93 L 07/28/16 20:00 97.3 F 89 24 170/74 93 L 07/28/16 18:00 18 07/28/16 15:40 98.1 F 129 H 18 110/73 96 07/28/16 15:00 83 18 95 07/28/16 14:00 18 07/28/16 11:37 97.2 F 70 18 146/73 92 L 07/28/16 11:00 62 18 96 Oxygen-Last 24 hours O2 Percentage 5 Liters = 40% O2 Percentage 3 Liters = 32% O2 Percentage 3 Liters = 32% O2 Percentage 3 Liters = 32% O2 Percentage 3 Liters = 32% Pain Assessment - Last Documented Pain Intensity 0 Pain Scale Used 0-10 Pain Scale Intake and Output: Intake & Output 07/26/16 07/27/16 07/28/16 07/29/16 11:59 11:59 11:59 11:59 Intake Total 1220 1800 2540 1660 Output Total 800 Balance 420 1800 2540 1660 Weight 88.405 kg 88.405 kg Lab Results: Accuchecks Date 07/28/16 Date 07/28/16 Date 07/28/16 Time 22:00 Time 16:28 Time 12:08 Accucheck Value: 202 Accucheck Value: 214 Accucheck Value: 198 Lab Results-Last 24 Hours 07/29/16 07/29/16 Range/Units 05:12 05:12 WBC 11.3 H (4.0-10.5) K/mm3 RBC 4.75 (4.1-5.6) M/mm3 Hgb 13.6 (12.5-18.0) gm/dl Hct 41.0 L (42-50) % MCV 86.3 (78-100) fl MCH 28.6 (26-32) pg MCHC 33.2 (32-36) g/dl RDW 13.5 (11.5-14.0) % Plt Count 192 (150-450) K/mm3 MPV 10.6 H (6-9.5) fl Segmented Neutrophils 85 H (36.-66.) % Band Neutrophils 2 (0.0-2.0) % Lymphocytes (Manual) 6 L (24-44) % Monocytes (Manual) 3 (0.0-12.0) % Differential Comment ABNORMAL Atypical Lymphocytes 4 % Toxic Granulation 1+ Platelet Estimate NORMAL (NORMAL) Sodium 142 (136-145) mEq/L Potassium 4.0 (3.5-5.1) mEq/L Chloride 105 (98-107) mEq/L Carbon Dioxide 28.6 (21-32) mEq/L Anion Gap 11.9 (5-15) MEQ/L BUN 28 H (9-20) mg/dL Creatinine 0.97 (0.55-1.30) mg/dl Estimated GFR > 60 ML/MIN Glucose 187 H (70-110) MG/DL Calcium 7.9 L (8.5-10.1) mg/dL Radiology Exams: Radiology Procedures Category Date Time Status CHEST 1 VIEW (PORTABLE) Urgent Exams 07/29/16 08:47 Ordered Multi-Disciplinary Progress Notes: Multi-Disciplinary Progress Notes 07/28/16 09:30 (created 07/28/16 11:02) Case Management Note by Sabina Howard DISCHARGE PLAN REVIEWED, PROVIDES SELF CARE, PLAN TO RETURN HOME TO PRE EPISODIC LEVEL OF [facility]. DECLINED NEEDS FOR DISCHARGE. WILL CONTINUE TO FOLLOW AND ASSESS FOR ALL DC NEEDS. Initialized on 07/28/16 11:02 - END OF NOTE Assessment/Plan (1) COPD with exacerbation Current Visit: Yes Status: Acute Assessment & Plan: doing well, continue solumedrol, will check xray since new increase in oxygen requirement Code(s): J44.1 - CHRONIC OBSTRUCTIVE PULMONARY DISEASE W (ACUTE) EXACERBATION (2) Influenza A Current Visit: Yes Status: Acute Code(s): J10.1 - FLU DUE TO OTH IDENT INFLUENZA VIRUS W OTH RESP MANIFEST (3) Pneumonia Current Visit: Yes Status: Acute Code(s): J18.9 - PNEUMONIA, UNSPECIFIED ORGANISM (4) Diabetes Current Visit: No Status: Chronic Qualifiers: Diabetes mellitus type: type 2 Diabetes mellitus complication status: with ophthalmic complications Diabetes mellitus complication detail: with other ophthalmic complication Diabetes mellitus terminal press operator insulin use: without correction use Qualified Code(s): 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
--- NOTE | 2016-07-29 09:34 | XRAY ---
Indication: Hypoxia. COPD exacerbation. Comparison: July 25, 2016. Portable chest again hyperinflated with bilateral mid to lower lung infiltrates/atelectasis minimally worsened on the left and stable on the right. Heart is not enlarged. No new cardiopulmonary abnormalities.
[2016-07-29] MEDS: ENOXAPARIN SODIUM SQ SCH (11:24)
[2016-07-29] MEDS: ROCEPHIN 1 Gm-D5w 50 ml Bag** 50 ML IV SCH (11:25)
[2016-07-29] MEDS: Zithromax 500 MG/ 250 ML NaCl Premix 250 ML IV SCH (11:26)
[2016-07-29] MEDS: Tamiflu 75MG Capsule PO SCH ×2 (11:26→22:21)
[2016-07-29] MEDS: Protonix 40MG Tablet PO SCH (11:26)
[2016-07-29] MEDS: NORVASC 5 MG PO SCH (11:26)
[2016-07-29] MEDS: NovoLOG Insulin SQ PRN ×2 (12:07→22:21)
[2016-07-29] MEDS: Zestril 20 MG PO SCH (17:27)
[2016-07-30] MEDS: DUONEB 0.5-3 MG/3 ml Neb IH SCH ×5 (03:17→19:33)
[2016-07-30] MEDS: PATIENT OWN MEDICATION PO SCH ×2 (05:01→19:33)
[2016-07-30 05:48] LABS: ANION GAP 10.4 MEQ/L (5-15); BLOOD UREA NITROGEN 28 mg/dL (9-20); CHLORIDE 108 mEq/L (98-107); Glucose 196 MG/DL (70-110); Mean Cell Volume 86.3 fl (78-100); Mean Corpuscular Hemoglobin 28.3 pg (26-32); Mean Platelet Volume 10.7 fl (6-9.5); Platelet Count 194 K/mm3 (150-450); Potassium 4.1 mEq/L (3.5-5.1); Red Blood Count 4.73 M/mm3 (4.1-5.6); Red Cell Distribution Width 13.7 % (11.5-14.0); SODIUM 143 mEq/L (136-145); White Blood Count 11.7 K/mm3 (4.0-10.5)
[2016-07-30] MEDS: solu-MEDROL 125 MG IV SCH ×4 (05:48→23:38)
[2016-07-30 07:21] LABS: BAND 1 % (0.0-2.0); Nucleated Red Blood Cell 1 %; Platelet Estimate NORMAL (NORMAL); Total Cells Counted 100
[2016-07-30] MEDS: Glucotrol Xl 5 MG PO SCH (07:35)
[2016-07-30 08:49] LABS: ARTERIAL BLOOD GAS PO2 57 mmHg (75-100); ARTERIAL BLOOD GAS pH 7.48 (7.35-7.45)
[2016-07-30 08:50] LABS: A-aADO2 182; ARTERIAL BLD GAS O2 SATURATION 91.1 % (95-100); ARTERIAL BLOOD GAS BASE EXCESS 4.1 (-2.0-2.0); ARTERIAL BLOOD GAS FIO2 40 %; CARBON DIOXIDE 29 mEq/L (23-27)
[2016-07-30 08:51] LABS: ALLEN TEST OK? YES
--- NOTE | 2016-07-30 08:55 | PCM.NOTE ---
Date and Time: 07/30/16 0850 Subjective Assessment: At about 08:30 pt was found to be hypoxemic with increased WOB with O2 sats in the upper 80s on 3L NC. Yesterday was on 5L NC and weaned to 3L throughout the day although his saturation did drop somewhat - he c/o chest pain with the higher levels of O2. Otherwise no chest pain. This morning ABG reveales pH 7.48 and PaO2 of 50%. cough has been dry and non productive. - Review of Systems Constitutional: No Fever Respiratory: Short Of Breath Objective Exam General Appearance: alert, other (tachypneic) Neurologic Exam: oriented x 3, cooperative Skin Exam: normal color, warm, dry Respiratory Exam: diminished breath sounds, wheezing (throughout), other (poor air exchange), No crackles/rales, No rhonchi Cardiovascular Exam: regular rate/rhythm, normal heart sounds, No murmur Extremity Exam: No pedal edema, No swelling Back Exam: normal inspection OBJECTIVE DATA Vital Signs: Vital Signs - 24 hr Temp Pulse Resp BP Pulse Ox 07/30/16 07:30 97.8 F 86 22 173/78 91 L 07/30/16 05:01 78 26 H 86 L 07/30/16 04:00 98.3 F 78 26 H 176/82 86 L 07/30/16 00:00 97.1 F 65 22 167/81 92 L 07/29/16 23:18 65 22 92 L 07/29/16 20:00 97.3 F 91 H 26 H 173/89 88 L 07/29/16 18:59 91 H 26 H 88 L 07/29/16 18:00 18 07/29/16 16:00 98.6 F 80 18 164/91 90 L 07/29/16 14:50 75 16 93 L 07/29/16 14:00 21 07/29/16 12:00 97.7 F 72 21 195/91 91 L 07/29/16 10:46 74 16 96 07/29/16 10:00 16 Oxygen-Last 24 hours O2 Percentage 2 Liters = 28% O2 Percentage 3 Liters = 32% O2 Percentage 3 Liters = 32% O2 Percentage 3 Liters = 32% O2 Percentage 4 Liters = 36% O2 Percentage 4 Liters = 36% Pain Assessment - Last Documented Pain Intensity 0 Pain Scale Used 0-10 Pain Scale Intake and Output: Intake & Output 07/27/16 07/28/16 07/29/16 07/30/16 11:59 11:59 11:59 11:59 Intake Total 1800 2540 2140 1740 Output Total 1400 Balance 1800 2540 2140 340 Weight 88.405 kg Lab Results: Accuchecks Date 07/30/16 Date 07/29/16 Date 07/29/16 Time 07:30 Time 16:30 Accucheck Value: 118 Accucheck Value: 284 Accucheck Value: 138 Accucheck Value: 253 Lab Results-Last 24 Hours 07/30/16 07/30/16 Range/Units 04:48 04:48 WBC 11.7 H (4.0-10.5) K/mm3 RBC 4.73 (4.1-5.6) M/mm3 Hgb 13.4 (12.5-18.0) gm/dl Hct 40.8 L (42-50) % MCV 86.3 (78-100) fl MCH 28.3 (26-32) pg MCHC 32.8 (32-36) g/dl RDW 13.7 (11.5-14.0) % Plt Count 194 (150-450) K/mm3 MPV 10.7 H (6-9.5) fl Segmented Neutrophils 94 H (36.-66.) % Band Neutrophils 1 (0.0-2.0) % Lymphocytes (Manual) 3 L (24-44) % Monocytes (Manual) 2 (0.0-12.0) % Nucleated RBCs 1 % Differential Comment NORMAL Platelet Estimate NORMAL (NORMAL) Sodium 143 (136-145) mEq/L Potassium 4.1 (3.5-5.1) mEq/L Chloride 108 H (98-107) mEq/L Carbon Dioxide 29.0 (21-32) mEq/L Anion Gap 10.4 (5-15) MEQ/L BUN 28 H (9-20) mg/dL Creatinine 0.95 (0.55-1.30) mg/dl Estimated GFR > 60 ML/MIN Glucose 196 H (70-110) MG/DL Calcium 7.7 L (8.5-10.1) mg/dL Radiology Exams: Radiology Procedures Category Date Time Status CHEST 1 VIEW (PORTABLE) Stat Exams 07/30/16 08:43 Ordered CHEST 1 VIEW (PORTABLE) Urgent Exams 07/29/16 08:47 Completed CHEST WITH CONTRAST [CT] Stat Exams 07/30/16 08:48 Ordered Assessment/Plan (1) Hypoxemia Current Visit: Yes Status: Acute Assessment & Plan: Pt to start on Cpap. eval including stat CXR, ABG (done), EKG, troponin, with stat CTA of the chest. Pulmonology consulted, thank you. Code(s): R09.02 - HYPOXEMIA (2) SOB (shortness of breath) Current Visit: Yes Status: Acute Assessment & Plan: differential includes PE, [place], bronchial plugging. Code(s): R06.02 - SHORTNESS OF BREATH (3) COPD with exacerbation Current Visit: Yes Status: Acute Code(s): J44.1 - CHRONIC OBSTRUCTIVE PULMONARY DISEASE W (ACUTE) EXACERBATION (4) Influenza A Current Visit: Yes Status: Acute Assessment & Plan: Has been treated x 5d; stop isolation today. 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 Code(s): E11.9 - TYPE 2 DIABETES MELLITUS WITHOUT COMPLICATIONS (6) Arrhythmia Current Visit: Yes Status: Acute Qualifiers: Arrhythmia type: unspecified cardiac arrhythmia Qualified Code(s): I49.9 - Cardiac arrhythmia, unspecified Assessment & Plan: stable. Code(s): I49.9 - CARDIAC ARRHYTHMIA, UNSPECIFIED (7) HTN (hypertension) Current Visit: Yes Status: Acute Qualifiers: Hypertension type: essential hypertension Qualified Code(s): I10 - Essential (primary) hypertension Assessment & Plan: increase amlodipine from 5mg daily to 10mg daily. some elevated BP the past several days. Code(s): I10 - ESSENTIAL (PRIMARY) HYPERTENSION
--- NOTE | 2016-07-30 09:14 | XRAY ---
Indication: Short of breath. Comparison: July 29, 2016. Portable chest unchanged again hyperinflated with mild bibasilar infiltrates/atelectasis. Heart is not enlarged. No new cardiopulmonary abnormalities.
[2016-07-30] MEDS: NORVASC 5 MG PO SCH (10:37)
[2016-07-30] MEDS: ROCEPHIN 1 Gm-D5w 50 ml Bag** 50 ML IV SCH (10:38)
[2016-07-30] MEDS: ENOXAPARIN SODIUM SQ SCH (10:38)
[2016-07-30] MEDS: Zestril 20 MG PO SCH (10:38)
[2016-07-30] MEDS: Tamiflu 75MG Capsule PO SCH ×2 (10:38→21:19)
[2016-07-30] MEDS: Protonix 40MG Tablet PO SCH (10:38)
--- NOTE | 2016-07-30 11:04 | XRAY ---
Indication: Short of breath and hypoxia. Possible PE. Multiple contiguous images obtained through the chest using 80 cc Isovue 370 contrast and PE protocol. Comparison: August 29, 2014. There is good opacification of the pulmonary arteries to include the lobar and segmental branches. However respiration artifact limits evaluation of the mid to lower lungs. Elsewhere no filling defect or pulmonary embolus. Heart is not enlarged. Aorta minimally atherosclerotic without aneurysm/dissection. No pathologic mediastinal/hilar lymphadenopathy. Again moderate size hiatal hernia with partial intrathoracic stomach. Examination of the lung parenchyma again demonstrates extensive bilateral pulmonary edema and bibasilar dependent atelectasis. Also tiny bibasilar effusions. No suspicious pulmonary mass, infiltrate, or consolidation. Bony thorax intact again with degenerative changes throughout the spine. Limited upper abdomen including adrenal glands unremarkable. Impression: 1. Study slightly degraded by respiration artifact. No central pulmonary embolus or evidence for pulmonary infarct. 2. Again incidental extensive pulmonary emphysema, bibasilar atelectasis, and moderate size hiatal hernia. CTDI 17.19
[2016-07-30] MEDS: Zithromax 500 MG/ 250 ML NaCl Premix 250 ML IV SCH (11:14)
[2016-07-30 11:38] LABS: A-aADO2 293; ALLEN TEST OK? YES; ARTERIAL BLOOD GAS BASE EXCESS 2.8 (-2.0-2.0); ARTERIAL BLOOD GAS FIO2 60 %; ARTERIAL BLOOD GAS PO2 85 mmHg (75-100); ARTERIAL BLOOD GAS pH 7.44 (7.35-7.45)
[2016-07-30] MEDS: NovoLOG Insulin SQ PRN ×3 (11:42→23:38)
--- NOTE | 2016-07-30 13:06 | CONS ---
CONSULT DATE: 07/30/16 REASON FOR CONSULTATION: Evaluation of shortness of breath, hypoxemia. HISTORY OF PRESENT ILLNESS: Mr. Downing is an 80 y/o male known to me, but not followed by over a year, who was apparently hospitalized last week with chronic obstructive pulmonary disease exacerbation and community acquired pneumonia. Patient was treated and was discharged home. However, he came back to the hospital and tested positive for influenza. He is being treated with Tamiflu and has been removed from isolation. Patient dropped O2 saturation requiring CPAP. At the time of my evaluation, he has been off of CPAP, but does report improvement. He is currently on oxymizer saturating 98%. Patient has long-standing history of chronic obstructive pulmonary disease, chronic bronchitis, and hypoxemia along with hypertension. PAST SURGICAL HISTORY: No recent surgeries. PERSONAL AND SOCIAL HISTORY: He is a former smoker. ALLERGIES: NOTED. CURRENT MEDICATIONS: Reviewed. PHYSICAL EXAMINATION: This is an elderly male who appears comfortable. Able to speak without difficulty. Vital signs are noted. HEENT: Normocephalic. Pupils are reactive. Oral exam shows small oropharynx. NECK: Supple. CVS: 1st and 2nd heart sounds normal, regular rhythm. RESPIRATORY: Shows diminished breath sounds bilaterally. Fairly diffuse rhonchi are heard. ABDOMEN: Soft. EXTREMITIES: No significant edema is noted. LABORATORY DATA: Labs, x-rays, and CT scans were all reviewed. ASSESSMENT: 1. THIS IS AN 80 Y/O MALE ADMITTED WITH CHRONIC OBSTRUCTIVE PULMONARY DISEASE WITH ACUTE EXACERBATION. 2. ACUTE BRONCHITIS. 3. HYPOXEMIA. 4. INFLUENZA A+ STATUS POST TAMIFLU. RECOMMENDATIONS: 1. Agree with current treatment. 2. Gradual steroid taper. 3. Continue bronchodilators q 4 h. 4. Discuss with respiratory therapy to continue using CPAP as much as tolerated. 5. If patient fails to show clinical improvement, may be a candidate for IV aminophylline therapy. 6. Continue with supportive care. Will follow-up in outpatient setting upon discharge. Thank you for allowing me to participate in the care of Mr. Downing. Agree with deep vein thrombosis prophylaxis and other supportive care.
[2016-07-31] MEDS: DUONEB 0.5-3 MG/3 ml Neb IH SCH ×6 (02:07→20:20)
[2016-07-31] MEDS: solu-MEDROL 125 MG IV SCH ×3 (05:41→18:44)
[2016-07-31] MEDS: Glucotrol Xl 5 MG PO SCH (07:52)
--- NOTE | 2016-07-31 08:18 | PCM.NOTE ---
Date and Time: 07/31/16812 Subjective Assessment: Pt was on cpap until 0200 last night then it was making his chest hurt so he stopped it. Chest pain resolved. Breathing is better but still c/o SOB; on 10 L oximizer currently with O2 sat mid 90s. Joya po well. No other complaints. - Review of Systems Constitutional: No Fever Respiratory: Cough, Short Of Breath Objective Exam General Appearance: no apparent distress Neurologic Exam: alert, oriented x 3, cooperative, other (sitting up, eating) Skin Exam: normal color, warm, dry Respiratory Exam: diminished breath sounds, prolonged expirations, wheezing (exp , scattered), No crackles/rales, No rhonchi Cardiovascular Exam: regular rate/rhythm, normal heart sounds (distant) Back Exam: normal inspection OBJECTIVE DATA Vital Signs: Vital Signs - 24 hr Temp Pulse Resp BP Pulse Ox 07/31/16 07:37 97.7 F 86 22 155/80 95 07/31/16 05:40 68 18 97 07/31/16 04:00 97.9 F 81 26 H 151/73 99 07/31/16 00:00 97.9 F 57 L 25 H 161/78 99 07/30/16 20:00 97.8 F 74 26 H 153/73 97 07/30/16 19:49 94 L 07/30/16 19:34 78 20 94 L 07/30/16 19:00 20 07/30/16 14:56 97.6 F 73 20 163/81 94 L 07/30/16 14:40 28 H 07/30/16 14:38 67 28 H 96 07/30/16 14:35 96 07/30/16 11:46 22 07/30/16 11:15 97.7 F 89 22 172/80 07/30/16 10:45 67 24 95 07/30/16 10:00 24 07/30/16 09:15 95 07/30/16 08:50 98 H 28 H 85 L Oxygen-Last 24 hours O2 Percentage 100% O2 Percentage 60% O2 Percentage 100% Pain Assessment - Last Documented Pain Intensity 0 Pain Scale Used 0-10 Pain Scale Intake and Output: Intake & Output 07/28/16 07/29/16 07/30/16 07/31/16 11:59 11:59 11:59 11:59 Intake Total 2540 2140 2100 1380 Output Total 1600 1700 Balance 2540 2140 500 -320 Weight 88.405 kg Lab Results: Accuchecks Date 07/30/16 Date 07/30/16 Time 16:30 Time 11:30 Accucheck Value: 251 Accucheck Value: 246 Accucheck Value: 282 Lab Results-Last 24 Hours 07/30/16 07/30/16 07/30/16 Range/Units 08:43 08:45 11:35 Puncture Site RIGHT RADIAL LEFT RADIAL pCO2 37 40 (35-45) mmHg pO2 57 L 85 (75-100) mmHg Base Excess 4.1 H 2.8 H (-2.0-2.0) O2 Saturation 89.3 L 96.2 (94-100) g/dF ABG pH 7.48 H 7.44 (7.35-7.45) ABG HCO3 27.6 27.2 (22-28) ABG O2 Sat (Measured) 91.1 L 98.0 (95-100) % ABG O2 Content 40 % vol Ren Test YES YES A-a Gradient 182 293 a/A Ratio 0.24 0.22 Hemoglobin 14.8 14.1 Carboxyhemoglobin 1.2 1.4 (0.0-6.9) % THgb Methemoglobin 0.7 L 0.4 L (1.4-1.5) % Potassium 4.1 4.1 (3.5-5.1) Temperature 37.0 C POC O2 Flow Rate 40 60 % Vent Mode CPAP Carbon Dioxide 29 H (23-27) mEq/L Lactic Acid (0.4-2.0) Troponin I 0.025 (0.000-0.056) ng/ml 07/30/16 Range/Units 12:00 Puncture Site pCO2 (35-45) mmHg pO2 (75-100) mmHg Base Excess (-2.0-2.0) O2 Saturation (94-100) g/dF ABG pH (7.35-7.45) ABG HCO3 (22-28) ABG O2 Sat (Measured) (95-100) % ABG O2 Content % vol Ren Test A-a Gradient a/A Ratio Hemoglobin Carboxyhemoglobin (0.0-6.9) % THgb Methemoglobin (1.4-1.5) % Potassium (3.5-5.1) Temperature C POC O2 Flow Rate % Vent Mode Carbon Dioxide (23-27) mEq/L Lactic Acid 2.1 H (0.4-2.0) Troponin I (0.000-0.056) ng/ml Radiology Exams: Radiology Procedures Category Date Time Status CHEST 1 VIEW (PORTABLE) Stat Exams 07/30/16 08:43 Completed CHEST 1 VIEW (PORTABLE) Urgent Exams 07/29/16 08:47 Completed CHEST WITH CONTRAST [CT] Stat Exams 07/30/16 08:48 Completed Multi-Disciplinary Progress Notes: Multi-Disciplinary Progress Notes 07/31/16 02:03 Respiratory Note by Clark Stratton RN CALLED RT TO PT RM, PT STATED HE DID NOT WANT TO WEAR CPAP ANYMORE IT WAS UNCOMFORTABLE. REMOVED CPAP AND PLACED PT BACK ON 15LPM OXYMIZER. Initialized on 07/31/16 02:03 - END OF NOTE Assessment/Plan (1) Hypoxemia Current Visit: Yes Status: Acute Assessment & Plan: improved; testing yesterday all negative for acute change. Dr. Rossi consulted, thank you! May start theophylline drip today. Code(s): R09.02 - HYPOXEMIA (2) SOB (shortness of breath) Current Visit: Yes Status: Acute Assessment & Plan: improved. Code(s): R06.02 - SHORTNESS OF BREATH (3) COPD with exacerbation Current Visit: Yes Status: Acute Assessment & Plan: Likely the cause of the hypoxemia and increased SOB. On rocephin and zithromax IV day #6, with IV solu-medrol 80mg q6h. May need theophylline drip as above. Code(s): J44.1 - CHRONIC OBSTRUCTIVE PULMONARY DISEASE W (ACUTE) EXACERBATION (4) Influenza A Current Visit: Yes Status: Acute Assessment & Plan: Treated x 5d with tamiflu. Now out of isolation (since yesterday). 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 SS coverage as neeeded. Code(s): E11.9 - TYPE 2 DIABETES MELLITUS WITHOUT COMPLICATIONS (6) Arrhythmia Current Visit: Yes Status: Acute Qualifiers: Arrhythmia type: unspecified cardiac arrhythmia Qualified Code(s): I49.9 - Cardiac arrhythmia, unspecified Code(s): I49.9 - CARDIAC ARRHYTHMIA, UNSPECIFIED (7) HTN (hypertension) Current Visit: Yes Status: Acute Qualifiers: Hypertension type: essential hypertension Qualified Code(s): I10 - Essential (primary) hypertension Assessment & Plan: BP better since increasing norvasc yesterday from 5mg daily to 10mg daily. If persistently high consider adding another agent. Code(s): I10 - ESSENTIAL (PRIMARY) HYPERTENSION
[2016-07-31] MEDS: Zestril 20 MG PO SCH (09:11)
[2016-07-31] MEDS: Tamiflu 75MG Capsule PO SCH (09:11)
[2016-07-31] MEDS: NORVASC 5 MG PO SCH (09:11)
[2016-07-31] MEDS: ROCEPHIN 1 Gm-D5w 50 ml Bag** 50 ML IV SCH (09:11)
[2016-07-31] MEDS: Protonix 40MG Tablet PO SCH (09:11)
[2016-07-31] MEDS: ENOXAPARIN SODIUM SQ SCH (09:12)
[2016-07-31] MEDS: Zithromax 500 MG/ 250 ML NaCl Premix 250 ML IV SCH ×2 (09:14→10:01)
[2016-07-31] MEDS: NovoLOG Insulin SQ PRN ×2 (12:03→21:26)
[2016-07-31] MEDS: Aminophylline 500 MG/20 ML*** 500 MG in Sodium Chloride 0.9% 500 ML 500 ML IV SCH (12:21)
[2016-07-31] MEDS: PATIENT OWN MEDICATION PO SCH (20:20)
[2016-08-01] MEDS: solu-MEDROL 125 MG IV SCH ×4 (00:12→18:02)
[2016-08-01] MEDS: DUONEB 0.5-3 MG/3 ml Neb IH SCH ×7 (00:46→23:10)
[2016-08-01 05:59] LABS: Mean Cell Volume 86.7 fl (78-100); Mean Corpuscular Hemoglobin 28.8 pg (26-32); Mean Platelet Volume 10.7 fl (6-9.5); Platelet Count 185 K/mm3 (150-450); Red Blood Count 4.59 M/mm3 (4.1-5.6); Red Cell Distribution Width 13.8 % (11.5-14.0); White Blood Count 13.6 K/mm3 (4.0-10.5)
[2016-08-01 06:19] LABS: ANION GAP 10.5 MEQ/L (5-15); BLOOD UREA NITROGEN 33 mg/dL (9-20); CHLORIDE 108 mEq/L (98-107); Carbon Dioxide 28.6 mEq/L (21-32); Glucose 209 MG/DL (70-110); Potassium 4.3 mEq/L (3.5-5.1); SODIUM 143 mEq/L (136-145)
[2016-08-01] MEDS: PATIENT OWN MEDICATION PO SCH ×2 (06:31→19:52)
[2016-08-01 08:11] LABS: ATYPICAL LYMPHS 1 %; Platelet Estimate NORMAL (NORMAL); Total Cells Counted 100; Toxic Granulation 1+
[2016-08-01] MEDS: NORVASC 5 MG PO SCH (08:51)
[2016-08-01] MEDS: Glucotrol Xl 5 MG PO SCH (08:51)
[2016-08-01] MEDS: ENOXAPARIN SODIUM SQ SCH (08:52)
[2016-08-01] MEDS: Protonix 40MG Tablet PO SCH (08:52)
[2016-08-01] MEDS: Zestril 20 MG PO SCH (08:52)
[2016-08-01] MEDS: Zithromax 500 MG/ 250 ML NaCl Premix 250 ML IV SCH (09:01)
--- NOTE | 2016-08-01 11:12 | PCM.NOTE ---
Date and Time: 08/01/16 1108 Subjective Assessment: He reports his breathing is better. He denies any pain. He reports he has been eating well. 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) Ears, Nose, & Throat: No Symptoms Respiratory: Short Of Breath, Wheezing Cardiac: No Symptoms Abdominal/Gastrointestinal: No Symptoms Genitourinary Symptoms: No Symptoms Musculoskeletal: No Symptoms Skin: Other (some pain at left IV site) Objective Exam General Appearance: no apparent distress, alert Neurologic Exam: alert, cooperative, normal mood/affect Skin Exam: normal color, warm, dry, other (mild redness around left IV site in anticubital fossa) Respiratory Exam: prolonged expirations, wheezing, other (few scattered wheezes , distant breath sounds, equal breath sounds), No crackles/rales, No rhonchi Cardiovascular Exam: regular rate/rhythm, normal heart sounds, No murmur, No friction rub, No gallop Gastrointestinal/Abdomen Exam: soft, normal bowel sounds, No tenderness, No distention, No mass Extremity Exam: other (no c/c/e) OBJECTIVE DATA Vital Signs: Vital Signs - 24 hr Temp Pulse Resp BP Pulse Ox 08/01/16 10:00 75 26 H 97 08/01/16 07:30 97.7 F 74 20 150/80 96 08/01/16 06:25 71 22 96 08/01/16 04:00 97.8 F 69 14 158/83 96 08/01/16 03:00 14 08/01/16 00:46 65 22 97 08/01/16 00:00 98.1 F 78 15 151/75 97 07/31/16 23:00 22 07/31/16 20:21 73 22 95 07/31/16 20:00 97.5 F 73 14 160/73 96 07/31/16 19:00 22 07/31/16 15:58 98 F 80 22 147/68 93 L 07/31/16 15:40 83 20 92 L 07/31/16 12:49 98.3 F 83 20 158/76 92 L Oxygen-Last 24 hours O2 Percentage 100% O2 Percentage 4 Liters = 36% O2 Percentage 4 Liters = 36% Pain Assessment - Last Documented Pain Intensity 0 Pain Scale Used 0-10 Pain Scale Intake and Output: Intake & Output 0307/31/16 08/01/16 08/02/16 06:59 06:59 06:59 07:59 Intake Total 2220 1740 2563 360 Output Total 1400 1900 1525 Balance 820 -160 1038 360 Lab Results: Accuchecks Accucheck Value: 163 Accucheck Value: 309 Accucheck Value: 188 Accucheck Value: 242 Lab Results-Last 24 Hours 08/01/16 08/01/16 08/01/16 Range/Units 05:44 05:44 05:44 WBC 13.6 H (4.0-10.5) K/mm3 RBC 4.59 (4.1-5.6) M/mm3 Hgb 13.2 (12.5-18.0) gm/dl Hct 39.8 L (42-50) % MCV 86.7 (78-100) fl MCH 28.8 (26-32) pg MCHC 33.2 (32-36) g/dl RDW 13.8 (11.5-14.0) % Plt Count 185 (150-450) K/mm3 MPV 10.7 H (6-9.5) fl Segmented Neutrophils 91 H (36.-66.) % Lymphocytes (Manual) 2 L (24-44) % Monocytes (Manual) 6 (0.0-12.0) % Differential Comment NORMAL Atypical Lymphocytes 1 % Toxic Granulation 1+ Platelet Estimate NORMAL (NORMAL) Sodium 143 (136-145) mEq/L Potassium 4.3 (3.5-5.1) mEq/L Chloride 108 H (98-107) mEq/L Carbon Dioxide 28.6 (21-32) mEq/L Anion Gap 10.5 (5-15) MEQ/L BUN 33 H (9-20) mg/dL Creatinine 0.88 (0.55-1.30) mg/dl Estimated GFR > 60 ML/MIN Glucose 209 H (70-110) MG/DL Calcium 7.9 L (8.5-10.1) mg/dL Theophylline 3.9 L (10-20.0) ug/ml Multi-Disciplinary Progress Notes: Multi-Disciplinary Progress Notes 08/01/16 06:12 Respiratory Note by Clark Stratton CANCELLED CPAP ORDER PT STATED HE WILL NOT WEAR IT ANYMORE DUE TO IT GIVING HIM CHEST PAIN. Initialized on 08/01/16 06:12 - END OF NOTE 07/31/16 11:31 Nutrition Note by Zahraa Singleton F/u note: 2200 ADA cardiac diet con't with 100% po intake. No recent labs, weight available. glu 197. goal #1 not met, #2 met. Goals and diet order to con't. Will monitor and f/u prn. T.CHARBEL Singleton Initialized on 07/31/16 11:31 - END OF NOTE Assessment/Plan (1) COPD with exacerbation Current Visit: Yes Status: Acute Assessment & Plan: Continue IV steroids, oxygen, breathing treatments, antibiotics and aminophylline per Dr. Rossi, home theater expert. 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 Blood glucoses fairly well controlled. Code(s): E11.9 - TYPE 2 DIABETES MELLITUS WITHOUT COMPLICATIONS (3) HTN (hypertension) Current Visit: Yes Status: Acute Qualifiers: Hypertension type: essential hypertension Qualified Code(s): I10 - Essential (primary) hypertension Assessment & Plan: Better controlled with the addition of amlodipine. Continue current medication. Code(s): I10 - ESSENTIAL (PRIMARY) HYPERTENSION
[2016-08-01] MEDS: Aminophylline 500 MG/20 ML*** 500 MG in Sodium Chloride 0.9% 500 ML 500 ML IV SCH (12:13)
[2016-08-01] MEDS: ROCEPHIN 1 Gm-D5w 50 ml Bag** 50 ML IV SCH (12:20)
[2016-08-01] MEDS: NovoLOG Insulin SQ PRN (21:24)
[2016-08-02] MEDS: solu-MEDROL 125 MG IV SCH ×4 (00:56→17:57)
[2016-08-02] MEDS: DUONEB 0.5-3 MG/3 ml Neb IH SCH ×6 (03:08→23:29)
[2016-08-02] MEDS: PATIENT OWN MEDICATION PO SCH ×2 (07:06→19:24)
[2016-08-02] MEDS: NovoLOG Insulin SQ PRN ×2 (07:39→22:23)
[2016-08-02] MEDS: Glucotrol Xl 5 MG PO SCH (07:40)
[2016-08-02] MEDS: ENOXAPARIN SODIUM SQ SCH (09:00)
[2016-08-02] MEDS: Zestril 20 MG PO SCH (09:00)
[2016-08-02] MEDS: Protonix 40MG Tablet PO SCH (09:00)
[2016-08-02] MEDS: NORVASC 5 MG PO SCH (09:00)
[2016-08-02] MEDS: ROCEPHIN 1 Gm-D5w 50 ml Bag** 50 ML IV SCH (09:06)
[2016-08-02] MEDS: Zithromax 500 MG/ 250 ML NaCl Premix 250 ML IV SCH (10:34)
--- NOTE | 2016-08-02 10:39 | PCM.NOTE ---
Date and Time: 08/02/16 1034 Subjective Assessment: Patient with oxygen saturation dropping to 84 % on oximizer at 10 L that was witnessed by RT Latoya. Patient reports he feels worse again this AM and was not able to eat breakfast and feels more short of breath. Discussed with Dr. Peter Slaughter who recommended that he go back on Bipap and conitnue the aminophyline drip for another 24 hours at least and he said they could call him with any concerns. - Review of Systems Constitutional: Fatigue, Weakness Eyes: No Symptoms Respiratory: Short Of Breath, Wheezing Cardiac: No Symptoms Abdominal/Gastrointestinal: No Symptoms Genitourinary Symptoms: No Symptoms Musculoskeletal: No Symptoms Skin: No Symptoms Objective Exam General Appearance: mild distress Neurologic Exam: alert, cooperative, normal mood/affect Skin Exam: normal color, warm, dry, No rash Respiratory Exam: airway intact, other (scattered wheezes throughout, equal breath sounds, scattered rhonchi, mild retractions, tachypnea, speaking in full sentences), No crackles/rales Cardiovascular Exam: regular rate/rhythm, normal heart sounds, No murmur, No friction rub, No gallop Gastrointestinal/Abdomen Exam: soft, normal bowel sounds, No tenderness, No distention, No mass Extremity Exam: other (no c/c/e) OBJECTIVE DATA Vital Signs: Vital Signs - 24 hr Temp Pulse Resp BP Pulse Ox 08/02/16 07:44 97.8 F 65 18 137/81 92 L 08/02/16 07:22 92 L 08/02/16 07:00 65 20 92 L 08/02/16 04:23 97.7 F 77 16 157/77 96 08/02/16 04:00 16 08/02/16 00:00 98.3 F 68 15 152/77 92 L 08/01/16 23:00 16 08/01/16 22:00 72 18 96 08/01/16 20:25 92 L 08/01/16 20:00 97.8 F 83 14 145/79 93 L 08/01/16 19:00 16 08/01/16 18:00 83 20 92 L 08/01/16 16:13 97.8 F 78 22 152/78 97 08/01/16 14:00 82 20 95 08/01/16 11:33 97.8 F 80 20 147/79 95 08/01/16 10:00 75 26 H 97 Oxygen-Last 24 hours O2 Percentage 100% O2 Percentage 100% O2 Percentage 90% O2 Percentage 80% O2 Percentage 4 Liters = 36% Pain Assessment - Last Documented Pain Intensity 0 Pain Scale Used 0-10 Pain Scale Intake and Output: Intake & Output 07/31/16 08/01/16 08/02/16 08/03/16 05:59 05:59 06:59 06:59 Intake Total 480 Output Total 1300 Balance -820 Lab Results: Accuchecks Accucheck Value: 213 Accucheck Value: 229 Accucheck Value: 203 Accucheck Value: 286 Lab Results-Last 24 Hours 08/02/16 Range/Units 06:10 Theophylline 6.7 L (10-20.0) ug/ml Radiology Exams: Radiology Procedures Category Date Time Status CHEST 1 VIEW (PORTABLE) Urgent Exams 08/02/16 10:26 Ordered Multi-Disciplinary Progress Notes: Multi-Disciplinary Progress Notes 08/02/16 10:29 Respiratory Note by Mago Stover 0830 pt pulse ox alarm going off. sp02 84% on 10lpm oxmizer. pt severly sob. inc flow to 15lpm. spo2 over 5min inc to 94%. pt less dyspenic. will try and wean as tolerated Initialized on 08/02/16 10:29 - END OF NOTE Assessment/Plan (1) COPD with exacerbation Current Visit: Yes Status: Acute Assessment & Plan: Continued problems with oxygenation and ventilation. He will go back on BIPAP this AM. Continue oxygen, breathing treatments, IV steroids, antibiotics, aminophyline, servicer coin machines Dr. Peter Rossi consulted. Prognosis is guarded and poor. End stage COPD. 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 Continue with current management. Code(s): E11.9 - TYPE 2 DIABETES MELLITUS WITHOUT COMPLICATIONS (3) HTN (hypertension) Current Visit: Yes Status: Acute Qualifiers: Hypertension type: essential hypertension Qualified Code(s): I10 - Essential (primary) hypertension Assessment & Plan: Blood pressure better controlled this AM. Continue with current antihypertensives. Code(s): I10 - ESSENTIAL (PRIMARY) HYPERTENSION
--- NOTE | 2016-08-02 12:17 | XRAY ---
Indication: Short of breath. Comparison: July 30, 2016. Portable apical lordotic chest again demonstrates bibasilar infiltrate/atelectasis, slightly worsened on the left. Heart remains within normal limits for AP portable technique. Vascularity normal. No new cardiopulmonary abnormalities. Comment: Preliminary interpretation was made by [facility]. No discrepancy.
[2016-08-02] MEDS: Aminophylline 500 MG/20 ML*** 500 MG in Sodium Chloride 0.9% 500 ML 500 ML IV SCH (12:40)
[2016-08-02 15:51] LABS: A-aADO2 245; ARTERIAL BLD GAS O2 SATURATION 94.5 % (95-100); ARTERIAL BLOOD GAS BASE EXCESS 5.2 (-2.0-2.0); ARTERIAL BLOOD GAS FIO2 50 %; ARTERIAL BLOOD GAS PO2 63 mmHg (75-100); ARTERIAL BLOOD GAS pH 7.48 (7.35-7.45); BIPAP(E) 8; BIPAP(I) 14
[2016-08-03] MEDS: solu-MEDROL 125 MG IV SCH ×3 (00:52→11:57)
[2016-08-03] MEDS: DUONEB 0.5-3 MG/3 ml Neb IH SCH ×6 (03:07→23:03)
--- NOTE | 2016-08-03 06:55 | PCM.NOTE ---
Date and Time: 08/03/16 0650 Subjective Assessment: Pt states he is "fine," has been on CPAP all night. Would like a drink of water. - Review of Systems Constitutional: No Fever Respiratory: Cough Objective Exam General Appearance: no apparent distress, other (Bipap in place) Neurologic Exam: alert, oriented x 3, cooperative Skin Exam: normal color, warm, dry Respiratory Exam: diminished breath sounds, other (good air exchange), No crackles/rales, No rhonchi, No wheezing Cardiovascular Exam: regular rate/rhythm, normal heart sounds, No murmur Gastrointestinal/Abdomen Exam: soft, No tenderness, No distention OBJECTIVE DATA Vital Signs: Vital Signs - 24 hr Temp Pulse Resp BP Pulse Ox 08/03/16 04:58 97.9 F 72 22 169/91 97 08/03/16 04:00 22 08/03/16 03:00 72 22 97 08/03/16 01:00 98.1 F 60 24 135/69 97 08/03/16 00:00 26 H 08/02/16 23:00 75 26 H 97 08/02/16 20:18 98.5 F 68 26 H 144/77 94 L 08/02/16 20:00 26 H 08/02/16 19:00 68 26 H 94 L 08/02/16 16:23 98.2 F 69 118 H 158/77 08/02/16 15:00 80 23 93 L 08/02/16 11:45 98.3 F 77 18 139/78 95 08/02/16 10:38 67 26 H 93 L 08/02/16 07:44 97.8 F 65 18 137/81 92 L 08/02/16 07:22 92 L 08/02/16 07:00 65 20 92 L Oxygen-Last 24 hours O2 Percentage 60% O2 Percentage 60% O2 Percentage 60% O2 Percentage 100% Pain Assessment - Last Documented Pain Intensity 0 Pain Scale Used 0-10 Pain Scale Intake and Output: Intake & Output 07/31/16 08/01/16 08/02/16 08/03/16 10:59 10:59 11:59 11:59 Intake Total 1408 Output Total 1550 Balance -142 Lab Results: Accuchecks Accucheck Value: 261 Accucheck Value: 200 Accucheck Value: 176 Accucheck Value: 213 Lab Results-Last 24 Hours 08/02/16 08/02/16 Range/Units 06:10 15:45 Puncture Site RIGHT BRACHIAL pCO2 39 (35-45) mmHg pO2 63 L (75-100) mmHg Base Excess 5.2 H (-2.0-2.0) O2 Saturation 92.6 L (94-100) g/dF ABG pH 7.48 H (7.35-7.45) ABG HCO3 29.0 H (22-28) ABG O2 Sat (Measured) 94.5 L (95-100) % Ren Test NOT APPLICABLE A-a Gradient 245 a/A Ratio 0.20 Hemoglobin 14.9 Carboxyhemoglobin 1.0 (0.0-6.9) % THgb Methemoglobin 1.0 L (1.4-1.5) % Potassium 4.3 (3.5-5.1) Temperature 37.0 C POC O2 Flow Rate 50 % Vent Mode BiPAP Inspiratory BiPAP 14 Expiratory BiPAP 8 Theophylline 6.7 L (10-20.0) ug/ml Radiology Exams: Radiology Procedures Category Date Time Status CHEST 1 VIEW (PORTABLE) Urgent Exams 08/02/16 10:26 Completed Multi-Disciplinary Progress Notes: Multi-Disciplinary Progress Notes 08/02/16 17:55 Respiratory Note by Mago Stover 1750 pt on 15lpm oxmizer spo2 85% post eating. placed back on bipap 04/01 r-16 60 %. spo2 94 in 2min. Initialized on 08/02/16 17:55 - END OF NOTE 08/02/16 17:39 Respiratory Note by Mago Stover 1730 pt on 14 r-16 fio2 60% spo2 97%. placed on oxmizer 15lpm to let pt eat. Initialized on 08/02/16 17:39 - END OF NOTE 08/02/16 17:39 Respiratory Note by Mago Stover at 1555 inc o2 to 60% 04/01- r-16 . Initialized on 08/02/16 17:39 - END OF NOTE 08/02/16 13:03 Respiratory Note by Mago Stover pt off bipap for sips of water. tolerating bipap well spo2 96% Initialized on 08/02/16 13:03 - END OF NOTE 08/02/16 11:31 Respiratory Note by Mago Stover PT CONTINUES TO REST WELL ON BIPAP 04/01 R16 50%. SPO2 96% RR 20 Initialized on 08/02/16 11:31 - END OF NOTE 08/02/16 10:29 Respiratory Note by Mago Stover 0830 pt pulse ox alarm going off. sp02 84% on 10lpm oxmizer. pt severly sob. inc flow to 15lpm. spo2 over 5min inc to 94%. pt less dyspenic. will try and wean as tolerated Initialized on 08/02/16 10:29 - END OF NOTE Assessment/Plan (1) Hypoxemia Current Visit: Yes Status: Acute Assessment & Plan: Still needs CPAP or high flow O2 per NC - will check ABG after being on CPAP all night. Results to Dr. Rossi, thank you, and await his recommendations. Code(s): R09.02 - HYPOXEMIA (2) COPD with exacerbation Current Visit: Yes Status: Acute Assessment & Plan: On IV antibiotics, steroids, and aminophylline drip. 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 Code(s): E11.9 - TYPE 2 DIABETES MELLITUS WITHOUT COMPLICATIONS (4) Arrhythmia Current Visit: Yes Status: Acute Qualifiers: Arrhythmia type: unspecified cardiac arrhythmia Qualified Code(s): I49.9 - Cardiac arrhythmia, unspecified Code(s): I49.9 - CARDIAC ARRHYTHMIA, UNSPECIFIED (5) HTN (hypertension) Current Visit: Yes Status: Acute Qualifiers: Hypertension type: essential hypertension Qualified Code(s): I10 - Essential (primary) hypertension Assessment & Plan: BP have been better until a high of 169 systolic this morning. Code(s): I10 - ESSENTIAL (PRIMARY) HYPERTENSION
[2016-08-03] MEDS: PATIENT OWN MEDICATION PO SCH ×2 (07:00→18:55)
[2016-08-03 07:08] LABS: A-aADO2 287; ARTERIAL BLD GAS O2 SATURATION 98.3 % (95-100); ARTERIAL BLOOD GAS BASE EXCESS 5.9 (-2.0-2.0); ARTERIAL BLOOD GAS FIO2 60 %; ARTERIAL BLOOD GAS PO2 92 mmHg (75-100); ARTERIAL BLOOD GAS pH 7.49 (7.35-7.45); BIPAP(E) 8; BIPAP(I) 14
[2016-08-03 07:09] LABS: ALLEN TEST OK? yes
[2016-08-03] MEDS: NovoLOG Insulin SQ PRN ×2 (08:11→11:54)
[2016-08-03] MEDS: Glucotrol Xl 5 MG PO SCH (08:22)
[2016-08-03] MEDS: NORVASC 5 MG PO SCH (10:14)
[2016-08-03] MEDS: Protonix 40MG Tablet PO SCH (10:15)
[2016-08-03] MEDS: Zestril 20 MG PO SCH (10:16)
[2016-08-03] MEDS: ROCEPHIN 1 Gm-D5w 50 ml Bag** 50 ML IV SCH (11:29)
[2016-08-03] MEDS: ENOXAPARIN SODIUM SQ SCH (11:40)
[2016-08-03] MEDS: Zithromax 500 MG/ 250 ML NaCl Premix 250 ML IV SCH (11:59)
[2016-08-03] MEDS: PROVENTIL 2.5 MG/3 ML NEB IH PRN (12:40)
[2016-08-03] MEDS: Aminophylline 500 MG/20 ML*** 500 MG in Sodium Chloride 0.9% 500 ML 500 ML IV SCH (16:21)
[2016-08-03] MEDS: solu-MEDROL 40 MG IV SCH (21:18)
[2016-08-03] MEDS ORDERED: Lantus Insulin SQ SCH (22:00)
[2016-08-03] MEDS ORDERED: Phenergan 25 MG INJ IV PRN (22:34)
[2016-08-03] MEDS ORDERED: APRESOLINE 20 MG/ML INJ IV PRN (22:36)
[2016-08-03] MEDS ORDERED: APRESOLINE 20 MG/ML INJ IV ONE (22:39)
[2016-08-04] MEDS: DUONEB 0.5-3 MG/3 ml Neb IH SCH ×3 (03:10→10:29)
[2016-08-04] MEDS: solu-MEDROL 40 MG IV SCH (06:02)
[2016-08-04] MEDS: PATIENT OWN MEDICATION PO SCH (07:00)
[2016-08-04] MEDS: Glucotrol Xl 5 MG PO SCH (07:42)
--- NOTE | 2016-08-04 08:59 | PCM.DS ---
Discharge Summary Date of Admission: 07/25/16 11:46 Admitting Physician: FRANK CAMPA Consults: Consults on Case 07/25/16 16:18 Consult Pulmonology ROUTINE 07/30/16 08:48 Consult Pulmonology ROUTINE Primary Care Provider: ARNOLDO SANDOVAL PsyD Allergies Allergies No Known Drug Allergies Allergy (Verified 07/25/16 08:26) Hospital Summary - Hospital Course Hospital Course: Pt admitted 2d after being discharged home for COPD exacerbation, this time with influenza A+. He improved steadily for the first few days then he became more hypoxic (5d ago). Workup for PE was negative. Pt wore bipap for several days then weaned off to oximizer; has been at 15L oximizer until this morning. Yesterday he coughed up a large amount of sputum. Dr. Slaughter has had the patient on an aminophylline drip which was discontinued this morning. He was interested in transferring the patient out to [facility] if no better today and the patient agrees with this. This morning he c/o mouth pain all over. - Vitals & Intake/Output Vital Signs: Vital Signs Temperature 98.2 F 08/04/16 07:34 Pulse Rate 87 08/04/16 07:34 Respiratory Rate 18 08/04/16 07:34 Blood Pressure 163/69 08/04/16 07:34 O2 Sat by Pulse Oximetry 95 08/04/16 08:09 Oxygen-Last Documented O2 Percentage 5 Liters = 40% Intake & Output: Intake & Output 08/01/16 08/02/16 08/03/16 08/04/16 10:59 11:59 11:59 11:59 Intake Total 1888 860 Output Total 2350 2500 Balance -462 -1640 - Lab Result Diagrams: 08/01/16 05:44 08/01/16 05:44 Lab Results-Last 24 Hrs: Accuchecks Date 08/03/16 Date 08/03/16 Time 17:27 Time 12:30 Accucheck Value: 143 Accucheck Value: 239 Accucheck Value: 152 Accucheck Value: 307 Micro Results-Entire Visit: Accuchecks Date 08/03/16 Date 08/03/16 Time 17:27 Time 12:30 Accucheck Value: 143 Accucheck Value: 239 Accucheck Value: 152 Accucheck Value: 307 - Radiology Exams Ordered Rad Exams-Entire Visit: Radiology Procedures Category Date Time Status CHEST 1 VIEW (PORTABLE) Urgent Exams 08/02/16 10:26 Completed CHEST 2 VIEWS (PA AND LAT) Routine Exams 08/04/16 08:14 Taken - Procedures and Test Procedures and Tests throughout Hospitalization: Therapy Orders & Screens 07/25/16 15:09 Flutter Therapy Comment: Diagnosis: Influenza A 07/25/16 15:10 Respiratory MDI Comment: Diagnosis: Influenza A 07/25/16 19:00 Respiratory Nebulizer Q4H Comment: DUONEB Q4 HOURS Diagnosis: Influenza A 07/25/16 22:25 Respiratory Nebulizer PRN Comment: ALBUTEROL Q2HPRN FOR SOB/WHEEZING Diagnosis: Influenza A 07/30/16 08:43 EKG STAT Comment: Diagnosis: Influenza A 08/02/16 10:33 BiPap/CPAP Assessment STAT Comment: Diagnosis: copd Discharge Exam General Appearance: mild distress, other (sitting on bedside, has eaten some breakfast) Skin Exam: normal color, warm, dry Ears, Nose, Throat Exam: moist mucous membranes, other (white patches scattered on buccal mucosa) Neck Exam: normal inspection Respiratory Exam: diminished breath sounds, No crackles/rales, No rhonchi, No wheezing Cardiovascular Exam: regular rate/rhythm, normal heart sounds Extremity Exam: No pedal edema, No swelling Final Diagnosis/Problem List - Final Discharge Diagnosis/Problem (1) Hypoxemia Current Visit: Yes Status: Acute Assessment & Plan: Dr. Rossi following, thank you! Agree with transferring pt, his O2 requirement has remained high. RT is trying to drop the O2 again this morning but pt is still on 10L oximizer. (2) COPD with exacerbation Current Visit: Yes Status: Acute Assessment & Plan: On IV steroids and antibiotics. Just stopped the aminophylline. (3) Diabetes Current Visit: No Status: Chronic Assessment & Plan: BS 140s-260; started lantus 10 units at hs yesterday. (4) Arrhythmia Current Visit: Yes Status: Acute Assessment & Plan: was a sinus arrhythmia on EKG (5) HTN (hypertension) Current Visit: Yes Status: Acute Assessment & Plan: RN called me with bp to 220 systolic last night although this is not recorded that I can see. Hydralazine prn. I did increase his amlodipine during this stay from 2.5mg to 10mg. Increase lisinopril from 20mg to 40mg daily. - Discharge Disposition: Home, Self-Care Condition: Good Prescriptions: No Action Ipratropium/Albuterol Sulfate [Combivent Respimat Common Canister] 1 puff IN QID Budesonide/Formoterol Fumarate [Symbicort 160-4.5 Mcg Inhaler] 2 puff IH BID Albuterol Sulfate [Proventil Hfa] 2 puff IN Q6H Amlodipine Besylate [Norvasc] 2.5 mg PO DAILY Omeprazole [Prilosec] 40 mg PO DAILY Ciprofloxacin HCl [Cipro] 500 mg PO BID #20 tablet Prednisone 20 mg [Deltasone 20 mg] 20 mg PO UD #18 tablet Metformin HCl 500 mg [Glucophage 500 MG] 500 mg PO BIDWMEALS Instructions: Chronic Obstructive Pulmonary Disease Follow up with: PANCHITO ROSSI [ACTIVE STAFF] - 08/12/16 2:00 pm ([facility]) ARNOLDO SANDOVAL PsyD [Primary Care Provider] - Call for Appointment Forms: Ambulance Transport Record, Transfer Record Inter-Agency
[2016-08-04] MEDS ORDERED: Zestril 20 MG PO SCH (09:01)
--- NOTE | 2016-08-04 09:38 | XRAY ---
Indication: Hypoxemia. Comparison: August 02, 2016. PA/lateral chest again hyperinflated with continued worsening left lower lobe infiltrate/atelectasis today appear more consolidating with possible small effusion. Stable right base subtle infiltrate/atelectasis. Heart is not enlarged.
[2016-08-04] MEDS: ENOXAPARIN SODIUM SQ SCH (09:53)
[2016-08-04] MEDS: Protonix 40MG Tablet PO SCH (09:54)
[2016-08-04] MEDS: NORVASC 5 MG PO SCH (09:54)
[2016-08-04] MEDS ORDERED: Levofloxacin 500 MG Tablet PO SCH (10:00)
[2016-08-04] MEDS ORDERED: Nystatin SUSPENSION 60 ML PO SCH (10:00)
[2016-08-04 12:18] VITALS: BP 152/72; PULSE 88; O2SAT 95
== END 2016-08-04 12:10 | disposition short-term general hospital (02) | DRG 190 ==
LOC: ED 08:11 → MED SURG 11:46
PROVIDERS: ADMIT Family Medicine; ATTEND Family Medicine
DX: J44.0 Chronic obstructive pulmonary disease with (acute) lower respiratory infection (principal); J18.9 Pneumonia, unspecified organism; J44.1 Chronic obstructive pulmonary disease with (acute) exacerbation; J20.9 Acute bronchitis, unspecified; R09.02 Hypoxemia; I49.8 Other specified cardiac arrhythmias; I10 Essential (primary) hypertension; E11.39 Type 2 diabetes mellitus with other diabetic ophthalmic complication; A49.02 Methicillin resistant Staphylococcus aureus infection, unspecified site; J10.1 Influenza due to other identified influenza virus with other respiratory manifestations; K21.9 Gastro-esophageal reflux disease without esophagitis; Z87.891 Personal history of nicotine dependence
CPT/HCPCS: 36000; 36415; 36600; 71010; 71020; 71260; 80048; 80053; 80198; 82375; 82803; 82962; 83036; 83605; 83880; 84484; 85025; 87040; 87631; 93005; 93041; 94002; 94003; 94640; 94660; 94760; 94762; 96365; 96374; 99285; J0280; J0360; J0456; J0696; J1650; J2550; J2920; J2930; A9270-GY

== ENCOUNTER 2016-11-08 07:33 | Inpatient (IN) | payer MEDICARE, SELFPAY ==
[2016-11-08] MEDS ORDERED: DUONEB 0.5-3 MG/3 ml Neb IH ONE ×2 (07:36→07:47)
[2016-11-08] MEDS ORDERED: solu-MEDROL 125 MG IV ONE (07:36)
[2016-11-08] MEDS ORDERED: Sodium Chloride 0.9% 1000 ML 1,000 ML IV SCH (07:45)
[2016-11-08] MEDS ORDERED: solu-MEDROL 125 MG ONE (07:57)
[2016-11-08 08:01] LABS: Mean Corpuscular Hemoglobin 28.5 pg (26-32); Mean Platelet Volume 10.5 fl (6-9.5); Platelet Count 213 K/mm3 (150-450); Red Blood Count 5.01 M/mm3 (4.1-5.6); Red Cell Distribution Width 14.2 % (11.5-14.0); White Blood Count 15.2 K/mm3 (4.0-10.5)
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
[2016-11-08 08:14] LABS: A-aADO2 94; ARTERIAL BLD GAS O2 SATURATION 95.3 % (95-100); ARTERIAL BLOOD GAS BASE EXCESS 0.7 (-2.0-2.0); ARTERIAL BLOOD GAS FIO2 28 %; ARTERIAL BLOOD GAS PO2 62 mmHg (75-100); ARTERIAL BLOOD GAS pH 7.45 (7.35-7.45)
[2016-11-08 08:28] LABS: Lactic Acid 2.2 (0.4-2.0)
[2016-11-08] MEDS ORDERED: ZITHROMAX IV 500 MG*** 0 MG in Sodium Chloride 0.9% 250 ML 250 ML IV ONE (08:42)
[2016-11-08] MEDS ORDERED: ROCEPHIN 1 Gm-D5w 50 ml Bag** 1 G/50 ML IVPB IV STA (08:42)
[2016-11-08 08:47] LABS: BAND 1 % (0.0-2.0); Basophil 1 % (0.0-1.0); Eosinophil 1 % (0.00-3.0); Platelet Estimate NORMAL (NORMAL); Total Cells Counted 100
[2016-11-08] MEDS ORDERED: ROCEPHIN 1 Gm-D5w 50 ml Bag** 1 G/50 ML IVPB IV ONE (08:47)
[2016-11-08 08:58] LABS: ALBUMIN 3.9 g/dL (3.4-5.0); ALKALINE PHOSPHATASE 61 U/L (46-116); BLOOD UREA NITROGEN 12 mg/dL (9-20); CHLORIDE 105 mEq/L (98-107); Carbon Dioxide 24.6 mEq/L (21-32); Glucose 178 MG/DL (70-110); Potassium 3.5 mEq/L (3.5-5.1); SGOT/AST 17 U/L (15-37); SGPT/ALT 22 U/L (12-78); SODIUM 139 mEq/L (136-145); Total Protein 6.8 gm/dL (6.4-8.2)
[2016-11-08 08:59] LABS: TROPONIN < 0.017 ng/ml (0.000-0.056)
[2016-11-08 09:18] LABS: Collection Type VOID; Leukocyte Esterase NEGATIVE (NEGATIVE)
[2016-11-08 09:19] LABS: ADD URINE CULTURE? NO (NO); Bilirubin NEGATIVE (NEGATIVE); Blood NEGATIVE Ery/ul (0-5); COMPLETE URINE MICROSCOPIC? NO; Glucose NEGATIVE (NEGATIVE)
--- NOTE | 2016-11-08 10:13 | XRAY ---
Indication: Chest pain and severe short of breath. COPD. Comparison: August 04, 2016. PA/lateral chest again hyperinflated with stable right base infiltrate/atelectasis. Left lung is now clear. Heart is not enlarged. Vascularity normal. Bony thorax intact again with mild osteopenia and degenerative changes. Impression: 1. Stable right base infiltrate/atelectasis. Correlate clinically. 2. Stable COPD.
[2016-11-08] MEDS: Zithromax 500 MG/ 250 ML NaCl Premix 500 MG/250 ML IVPB IV SCH (10:45)
[2016-11-08] MEDS: DUONEB 0.5-3 MG/3 ml Neb IH SCH ×4 (11:12→23:09)
[2016-11-08] MEDS: Glucophage 500 MG PO SCH (17:11)
[2016-11-08] MEDS ORDERED: Protonix 40MG Tablet PO SCH (22:00)
[2016-11-09] MEDS: DUONEB 0.5-3 MG/3 ml Neb IH SCH ×6 (03:09→22:28)
[2016-11-09 05:32] LABS: Mean Cell Volume 86.8 fl (78-100); Mean Corpuscular Hemoglobin 28.9 pg (26-32); Mean Platelet Volume 10.6 fl (6-9.5); Platelet Count 174 K/mm3 (150-450); Red Blood Count 4.33 M/mm3 (4.1-5.6); Red Cell Distribution Width 13.9 % (11.5-14.0); White Blood Count 15.1 K/mm3 (4.0-10.5)
[2016-11-09 05:53] LABS: ANION GAP 11.6 MEQ/L (5-15); BLOOD UREA NITROGEN 21 mg/dL (9-20); CHLORIDE 108 mEq/L (98-107); Carbon Dioxide 26.5 mEq/L (21-32); Glucose 125 MG/DL (70-110); Potassium 3.7 mEq/L (3.5-5.1); SODIUM 142 mEq/L (136-145)
[2016-11-09 06:28] LABS: Total Cells Counted 100
[2016-11-09 06:29] LABS: ANISOCYTOSIS 1+; Platelet Estimate NORMAL (NORMAL); Poikilocytosis 1+
[2016-11-09] MEDS ORDERED: Advair Hfa 230/21 Mcg COMMON CANISTER IH SCH (07:00)
[2016-11-09] MEDS: Glucophage 500 MG PO SCH ×2 (07:50→17:08)
[2016-11-09] MEDS ORDERED: PHARMACY DOSING REQUEST MC ONE (08:58)
[2016-11-09] MEDS ORDERED: solu-MEDROL 125 MG IV SCH (09:00)
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
[2016-11-09] MEDS: NORVASC 5 MG PO SCH (09:36)
[2016-11-09] MEDS: Protonix 40MG Tablet PO SCH ×2 (09:37→21:34)
[2016-11-09] MEDS: ROCEPHIN 1 Gm-D5w 50 ml Bag** 1 G/50 ML IVPB IV SCH (09:38)
[2016-11-09] MEDS ORDERED: PULMICORT 0.5 MG/2 ML RESPULES IH SCH (10:00)
[2016-11-09] MEDS ORDERED: PROTONIX 40 MG IV IV SCH (10:00)
[2016-11-09] MEDS ORDERED: NON-FORMULARY ITEM (Amlodipine Besylate [Norvasc] 2.5 MG) PO SCH (10:00)
[2016-11-09] MEDS ORDERED: NON-FORMULARY ITEM (Budesonide/Formoterol Fumarate [Symbicort 160-4.5 Mcg Inhaler] 2 PUFF) IH SCH (10:00)
[2016-11-09] MEDS: Zithromax 500 MG/ 250 ML NaCl Premix 500 MG/250 ML IVPB IV SCH (10:23)
[2016-11-09] MEDS: Sodium Chloride 0.9% 10 ML FLUSH Syringe IV SCH ×3 (12:15→21:34)
[2016-11-09] MEDS: PULMICORT 0.5 MG/2 ML RESPULES IH SCH (18:31)
[2016-11-10] MEDS: DUONEB 0.5-3 MG/3 ml Neb IH SCH ×2 (02:47→06:41)
[2016-11-10] MEDS: Sodium Chloride 0.9% 10 ML FLUSH Syringe IV SCH ×2 (05:49→10:00)
[2016-11-10] MEDS: PULMICORT 0.5 MG/2 ML RESPULES IH SCH (06:41)
[2016-11-10] MEDS: Glucophage 500 MG PO SCH ×2 (07:38→16:58)
[2016-11-10] MEDS: NORVASC 5 MG PO SCH (08:37)
[2016-11-10] MEDS: ROCEPHIN 1 Gm-D5w 50 ml Bag** 1 G/50 ML IVPB IV SCH (08:38)
[2016-11-10] MEDS: Protonix 40MG Tablet PO SCH (08:38)
[2016-11-10] MEDS: Zithromax 500 MG/ 250 ML NaCl Premix 500 MG/250 ML IVPB IV SCH (09:25)
--- NOTE | 2016-11-10 12:06 | PCM.DS ---
Discharge Summary Date of Admission: 11/08/16 09:05 Admitting Physician: MIREILLE LARA Consults: Consults on Case 11/09/16 09:01 Consult Pulmonology ROUTINE Primary Care Provider: ARNOLDO SANDOVAL PsyD Allergies Allergies No Known Drug Allergies Allergy (Verified 11/08/16 07:42) Hospital Summary - Hospital Course Hospital Course: Chief Complaint Diagnosis c/o shortness of breath Allergies Allergy/AdvReac Type Severity Reaction Status Date / Time No Known Drug Allergies Allergy Verified 11/08/16 07:42 Vital Signs (Last 24 hours) Temp Pulse Resp BP Pulse Ox 11/10/16 11:30 98.2 F 69 18 138/66 94 L 11/10/16 08:00 18 11/10/16 07:51 80 18 89 L 11/10/16 07:19 98.2 F 77 18 167/83 96 11/10/16 06:00 77 18 96 11/10/16 04:05 99.3 F 83 19 155/74 93 L 11/10/16 02:47 83 19 93 L 11/10/16 00:00 98.4 F 86 20 151/78 94 L 11/09/16 22:31 81 18 95 11/09/16 20:00 98.3 F 97 H 20 151/72 91 L 11/09/16 18:34 88 18 93 L 11/09/16 16:00 98.3 F 80 20 150/96 11/09/16 15:27 73 20 95 Current Medications Generic Name Dose Route Start Last Admin Trade Name Freq PRN Reason Stop Dose Admin Albuterol/Ipratropium 3 ml 11/08/16 11:00 11/10/16 06:41 Duoneb 0.5-3 Mg/3 Ml Neb IH 12/08/16 10:59 3 ml Q4HRT VERÓNICA Administration Amlodipine Besylate 2.5 mg 11/09/16 10:00 11/10/16 08:37 Norvasc 5 Mg PO 12/09/16 09:59 2.5 mg DAILY VERÓNICA Administration Budesonide 0.5 mg 11/09/16 19:00 11/10/16 06:41 Pulmicort 0.5 Mg/2 Ml Respules IH 12/09/16 18:59 0.5 mg BIDRT VERÓNICA Administration Ceftriaxone Sodium/Dextrose 1 g in 50 mls @ 100 mls/hr 11/09/16 10:00 08:38 Rocephin 1 Gm-D5w 50 Ml Bag IV 12/09/16 09:59 100 mls/hr Q24H10 VERÓNICA Administration Azithromycin 500 mg in 250 mls @ 125 mls/hr 11/08/16 10:00 11/10/16 09:25 Zithromax 500 Mg/ 250 Ml Nacl Premix IV 12/08/16 09:59 125 mls/hr DAILY VERÓNICA Administration Metformin HCl 500 mg 11/08/16 17:00 11/10/16 07:38 Glucophage 500 Mg PO 12/08/16 16:59 500 mg BIDWM VERÓNICA Administration Pantoprazole Sodium 40 mg 11/09/16 10:00 11/10/16 08:38 Protonix 40mg Tablet PO 12/09/16 09:59 40 mg BID VERÓNICA Administration Sodium Chloride 10 ml 11/08/16 14:00 11/10/16 05:49 Sodium Chloride 0.9% 10 Ml Flush Syringe IV 12/08/16 13:59 10 ml Q8HT VERÓNICA Administration Discontinued Medications Generic Name Dose Route Start Last Admin Trade Name Freq PRN Reason Stop Dose Admin Albuterol/Ipratropium 3 ml 11/08/16 07:36 11/08/16 07:45 Duoneb 0.5-3 Mg/3 Ml Neb IH 11/08/16 07:37 3 ml STAT ONE Administration Albuterol/Ipratropium Confirm 11/08/16 07:47 Duoneb 0.5-3 Mg/3 Ml Neb Administered 11/08/16 07:48 Dose 3 ml IH .STK-MED ONE Sodium Chloride 1,000 mls @ 50 mls/hr 11/08/16 07:45 11/08/16 07:58 Sodium Chloride 0.9% 1000 Ml IV 12/08/16 07:44 50 mls/hr .Q20H VERÓNICA Administration Azithromycin / Sodium Chloride 250 mls @ 125 mls/hr 11/08/16 08:42 IV 11/08/16 10:41 STAT ONE Ceftriaxone Sodium/Dextrose 1 g in 50 mls @ 100 mls/hr 11/08/16 08:42 08:50 Rocephin 1 Gm-D5w 50 Ml Bag IV 11/08/16 09:11 100 mls/hr STAT STA Administration Ceftriaxone Sodium/Dextrose Confirm 11/08/16 08:47 Rocephin 1 Gm-D5w 50 Ml Bag Administered 11/08/16 08:48 Dose 1 g in 50 mls @ ud IV .STK-MED ONE Methylprednisolone Sodium Succinate 125 mg 11/08/16 07:36 11/08/16 07:58 Solu-Medrol 125 Mg IV 11/08/16 07:37 125 mg STAT ONE Administration Methylprednisolone Sodium Succinate Confirm 11/08/16 07:57 Solu-Medrol 125 Mg Administered 11/08/16 07:58 Dose 125 mg .ROUTE .STK-MED ONE Methylprednisolone Sodium Succinate 125 mg 11/09/16 09:00 11/09/16 12:16 Solu-Medrol 125 Mg IV 12/09/16 08:59 Not Given Q8H VERÓNICA Non-Formulary Medication 1 each 11/09/16 08:58 11/09/16 12:15 Pharmacy Dosing Request [facility] 11/09/16 08:59 Not Given STAT ONE Pantoprazole Sodium 40 mg 11/08/16 22:00 11/08/16 21:42 Protonix 40mg Tablet PO 12/08/16 21:59 40 mg BID VERÓNICA Administration Pantoprazole Sodium 40 mg 11/09/16 10:00 Protonix 40 Mg Iv IV 12/09/16 09:59 Q24H10 VERÓNICA Fluticasone/Salmeterol 2 puff 11/09/16 07:00 11/09/16 08:24 Advair Hfa 230/21 Mcg Common Canister* IH 12/09/16 06:59 2 puff BIDRT VERÓNICA Administration Intake & Output (Last 24 hours) 11/08/16 11/09/16 11/10/16 11/11/16 11:59 11:59 11:59 11:59 Intake Total 2800 2260 Output Total 850 1400 Balance 1950 860 Weight 82.055 kg 82.055 kg Microbiology Results (Last 24 hours) 11/08/16 07:50 Blood - Pending 11/08/16 07:50 Blood Blood Culture - Preliminary NO GROWTH TO DATE 11/08/16 07:45 Blood - Pending 11/08/16 07:45 Blood Blood Culture - Preliminary NO GROWTH TO DATE Orders (Last 24 hours) Category Date Time Status Budesonide 0.5 mg/2 ml [Pulmicort 0.5 mg/2 ml Med 11/09/16 19:00 Active Respules] 0.5 mg IH BIDRT Respiratory Nebulizer BID RT 11/09/16 19:00 Active Patient Care Notes (Last 24 hours) 11/10/16 10:30 (created 11/10/16 11:30) Case Management Note by Sabina Howard DISCUSSED HOME OXYGEN WITH PT. REPORTS THAT HE THINKS HE HAS TO [facility] FOR VERIFICATION. AWAIT NOTIFICATION TO ARRANGE HOME OXYGEN. DR. MORRIS IS PLANNING TO DC HOME TODAY. Initialized on 11/10/16 11:30 - END OF NOTE 11/09/16 18:13 Respiratory Note by Mago Stover PT RESTING SPO2 96%. WITH ROOM AIR AMBULATION SPO2 DEC TO 83%. PT REFUSES ANY HOME O2. STATES IF HE NEEDS IT [facility]. Addendum entered by Cynthia Hoff 11/10/16 11:58: Patient was not ambulated for 6 minutes due to fact that patient was already 83 % on room air with just a few steps and very sob. Patient was checked this am on room air and saturations were 89% within a few minutes. [employer]hing [employer] Initialized on 11/09/16 18:13 - END OF NOTE 11/09/16 17:45 Nursing Note by REGINALDO LAUREN PT'S O2 SAT 94% ON ROOM AIR, PT THEN WALKED ABOUT 200 FEET AND O2 SAT DROPPED TO 83% ON ROOM AIR. WHEN PT RETURNED TO ROOM, PT'S O2 SAT RAISED TO 96% ON ROOM AIR. Initialized on 11/09/16 17:45 - END OF NOTE will get home oxygen and will d/c home today - Vitals & Intake/Output Vital Signs: Vital Signs Temperature 98.2 F 11/10/16 11:30 Pulse Rate 69 11/10/16 11:30 Respiratory Rate 18 11/10/16 11:30 Blood Pressure 138/66 11/10/16 11:30 O2 Sat by Pulse Oximetry 94 L 11/10/16 11:30 Oxygen-Last Documented O2 Percentage 2 Liters = 28% Intake & Output: Intake & Output 11/08/16 11/09/16 11/10/16 11/11/16 11:59 11:59 11:59 11:59 Intake Total 2800 2260 Output Total 850 1400 Balance 1950 860 Weight 82.055 kg 82.055 kg - Lab Result Diagrams: 11/09/16 05:10 11/09/16 05:10 Lab Results-Last 24 Hrs: Accuchecks Date 11/10/16 Date 11/09/16 Time 07:30 Time 21:00 Accucheck Value: 133 Accucheck Value: 113 Accucheck Value: 98 Micro Results-Entire Visit: Accuchecks Date 11/10/16 Date 11/09/16 Time 07:30 Time 21:00 Accucheck Value: 133 Accucheck Value: 113 Accucheck Value: 98 - Procedures and Test Procedures and Tests throughout Hospitalization: Therapy Orders & Screens 11/08/16 09:49 Respiratory Nebulizer Q4H Comment: Diagnosis: Shortness of Breath 11/08/16 09:50 Oxygen NASAL CANNULA 2 lpm Comment: Diagnosis: Shortness of Breath 11/08/16 11:13 RT Screen per Nursing Assess ONCE Comment: Protocol Order Physician Instructions: Greater than 3 points order RT Admission Screen Reason For Exam: Triggered on Admission Diagnosis: Pneumonia Diagnosis: Pneumonia Pneumonia: Yes Home O2: No Asthma: No CHF: No Home CPAP/BIPAP: No Home Nebs/MDI: Yes Total Points: 8 11/09/16 07:00 Respiratory MDI BID Comment: ADVAIR 230/ BID Diagnosis: Pneumonia 11/09/16 19:00 Respiratory Nebulizer BID Comment: PULMICORT BID Diagnosis: c/o shortness of breath Discharge Exam General Appearance: no apparent distress, alert Neurologic Exam: alert, oriented x 3, cooperative, normal mood/affect, nml cerebellar function, sensation nml, No motor deficits Skin Exam: normal color, warm, dry Eye Exam: PERRL, EOMI, eyes nml inspection Ears, Nose, Throat Exam: normal ENT inspection, pharynx normal, moist mucous membranes Neck Exam: normal inspection, non-tender, supple, full range of motion Respiratory Exam: normal breath sounds, lungs clear, No respiratory distress Cardiovascular Exam: regular rate/rhythm, normal heart sounds Gastrointestinal/Abdomen Exam: soft, No tenderness, No mass Extremity Exam: normal inspection, normal range of motion Back Exam: normal inspection, normal range of motion, No CVA tenderness, No vertebral tenderness Male Genitalia Exam: deferred Rectal Exam: deferred Final Diagnosis/Problem List - Final Discharge Diagnosis/Problem (1) COPD with exacerbation Current Visit: Yes Status: Resolved (2) Right lower lobe pneumonia Current Visit: Yes Status: Resolved (3) Pneumonia Current Visit: Yes Status: Resolved (4) Pulmonary fibrosis Current Visit: Yes Status: Chronic (5) HTN (hypertension) Current Visit: No Status: Chronic (6) Diabetes Current Visit: No Status: Chronic - Discharge Disposition: Home, Self-Care Condition: Fair Prescriptions: No Action Ipratropium/Albuterol Sulfate [Combivent Respimat Common Canister] 1 puff IN QID Budesonide/Formoterol Fumarate [Symbicort 160-4.5 Mcg Inhaler] 2 puff IH BID Albuterol Sulfate [Proventil Hfa] 2 puff IN Q6H Amlodipine Besylate [Norvasc] 2.5 mg PO DAILY Omeprazole [Prilosec] 40 mg PO BID Metformin HCl 500 mg [Glucophage 500 MG] 500 mg PO BIDWMEALS Instructions: Chronic Obstructive Pulmonary Disease, Pneumonia -- Adult Follow up with: PANCHITO LARA [ACTIVE STAFF] - 1 Week ARNOLDO SANDOVAL PsyD [Primary Care Provider] - Forms: Patient Portal Information
[2016-11-10 18:29] VITALS: BP 164/85; PULSE 86; O2SAT 97
== END 2016-11-10 18:30 | disposition home or self-care (01) | DRG 190 ==
LOC: ED 07:33 → MED SURG 09:05
PROVIDERS: ADMIT General Practice; ATTEND General Practice
DX: J44.1 Chronic obstructive pulmonary disease with (acute) exacerbation (principal); J18.1 Lobar pneumonia, unspecified organism; J18.9 Pneumonia, unspecified organism; J84.10 Pulmonary fibrosis, unspecified; I10 Essential (primary) hypertension; E11.9 Type 2 diabetes mellitus without complications; R09.02 Hypoxemia; Z79.899 Other long term (current) drug therapy
CPT/HCPCS: 36000; 36415; 36600; 71020; 80048; 80053; 81002; 82375; 82803; 82962; 83036; 83605; 83880; 84484; 85025; 87040; 93005; 93041; 94150; 94640; 94760; 94761; 96360; 96365; 96374; 99285; J0456; J0696; J2930; A9270-GY

== ENCOUNTER 2017-01-13 18:32 | Emergency (ER) | payer MEDICARE ==
[2017-01-13] MEDS ORDERED: Zithromax 500 MG/ 250 ML NaCl Premix 500 MG/250 ML IVPB IV STA (19:30)
[2017-01-13] MEDS ORDERED: ROCEPHIN 1 Gm-D5w 50 ml Bag** 1 G/50 ML IVPB IV STA (19:30)
[2017-01-13] MEDS ORDERED: Robitussin AC Syrup Unit Dose Cup PO PRN (19:33)
[2017-01-13] MEDS ORDERED: Xopenex 1.25 MG/0.5 ML UD NEBULE IH ONE ×2 (19:35→19:52)
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
[2017-01-13 19:41] LABS: BASOPHIL % 1.6 % (0.0-0.4); Eosinophil % 3.1 % (0.00-5.0); Granulocytes % 68.6 % (36.0-66.0); Lymphocytes % 14.7 % (24.0-44.0); Mean Cell Volume 82.9 fl (78-100); Mean Corpuscular Hemoglobin 26.5 pg (26-32); Platelet Count 231 K/mm3 (150-450); Red Blood Count 5.09 M/mm3 (4.1-5.6); Red Cell Distribution Width 15.1 % (11.5-14.0); White Blood Count 7.4 K/mm3 (4.0-10.5)
[2017-01-13] MEDS ORDERED: Robitussin AC Syrup Unit Dose Cup ONE (19:46)
[2017-01-13] MEDS ORDERED: ROCEPHIN 1 Gm-D5w 50 ml Bag** 1 G/50 ML IVPB IV ONE (19:46)
[2017-01-13] MEDS ORDERED: Zithromax 500 MG/ 250 ML NaCl Premix 500 MG/250 ML IVPB IV ONE (19:46)
[2017-01-13 19:48] LABS: MAGNESIUM 1.9 mg/dL (1.8-2.4)
[2017-01-13 19:51] LABS: ALBUMIN 3.8 g/dL (3.4-5.0); ALKALINE PHOSPHATASE 73 U/L (46-116); ANION GAP 15.9 MEQ/L (5-15); BLOOD UREA NITROGEN 13 mg/dL (9-20); CHLORIDE 104 mEq/L (98-107); Carbon Dioxide 25.9 mEq/L (21-32); Glucose 179 MG/DL (70-110); Potassium 3.8 mEq/L (3.5-5.1); SGOT/AST 17 U/L (15-37); SGPT/ALT 28 U/L (12-78); SODIUM 142 mEq/L (136-145); Total Protein 7.2 gm/dL (6.4-8.2)
[2017-01-13] MEDS ORDERED: Sodium Chloride 3 ML UD NEBULES IH ONE (19:52)
[2017-01-13 19:59] LABS: ADD URINE CULTURE? NO (NO); Bilirubin NEGATIVE (NEGATIVE); Blood NEGATIVE Ery/ul (0-5); COMPLETE URINE MICROSCOPIC? NO; Collection Type CLEAN CATCH; Glucose NEGATIVE (NEGATIVE); Leukocyte Esterase NEGATIVE (NEGATIVE)
[2017-01-13 20:54] VITALS: BP 129/77; PULSE 75
[2017-01-13 21:34] VITALS: O2SAT 94
--- NOTE | 2017-01-14 09:34 | XRAY ---
Indication: Cough. Comparison: November 08, 2016. PA/lateral chest remains hyperinflated with right base infiltrate versus atelectasis. Remaining heart and left lung unremarkable. No new cardiopulmonary abnormalities.
== END 2017-01-13 21:44 | disposition home or self-care (01) ==
LOC: ED 18:32
DX: J40 Bronchitis, not specified as acute or chronic (principal); J02.9 Acute pharyngitis, unspecified; R09.81 Nasal congestion; R07.89 Other chest pain; Z79.899 Other long term (current) drug therapy; I10 Essential (primary) hypertension; J44.9 Chronic obstructive pulmonary disease, unspecified; E11.9 Type 2 diabetes mellitus without complications; Z79.84 Long term (current) use of oral hypoglycemic drugs
CPT/HCPCS: 36000; 36415; 71020; 80053; 81002; 82150; 83690; 83735; 84484; 85025; 85652; 86308; 87040; 87070; 87430; 87631; 93005; 93041; 94640; 96365; 96366; 96367; 99284; J0456; J0696; P9603; A9270-GY

== ENCOUNTER 2017-07-10 18:48 | Emergency (ER) | payer MEDICARE, SELFPAY ==
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
[2017-07-10] MEDS ORDERED: solu-MEDROL 125 MG IV ONE (19:24)
[2017-07-10] MEDS ORDERED: DUONEB 0.5-3 MG/3 ml Neb IH ONE ×2 (19:24→19:30)
[2017-07-10] MEDS ORDERED: Sodium Chloride 0.9% 1000 ML 1,000 ML ONE (19:26)
[2017-07-10] MEDS ORDERED: Sodium Chloride 0.9% 1000 ML 1,000 ML IV SCH (19:30)
[2017-07-10] MEDS ORDERED: solu-MEDROL 125 MG ONE (19:32)
[2017-07-10 19:55] LABS: BASOPHIL % 1.3 % (0.0-0.4); Basophil (Absolute #) 0.06 (0-0.4); Eosinophil % 1.9 % (0.00-5.0); Eosinophil (Absolute #) 0.09 (0-0.5); Granulocyte Absolute (ANC) 3.16 (1.4-6.9); Hematocrit 40.9 % (42-50); Hemoglobin 13.2 gm/dl (12.5-18.0); Lymphocyte (Absolute #) 0.74 (1.0-4.6); Lymphocytes % 15.5 % (24.0-44.0); Mean Corpuscular Hemoglobin 27.4 pg (26-32); Mean Corpuscular Hgb Concent. 32.3 g/dl (32-36); Mean Platelet Volume 10.7 fl (6-9.5); Monocyte (Absolute #) 0.73 (0.0-1.3); Monocytes % 15.3 % (0.0-12.0); Platelet Count 168 K/mm3 (150-450); Red Blood Count 4.81 M/mm3 (4.1-5.6); Red Cell Distribution Width 14.8 % (11.5-14.0); White Blood Count 4.8 K/mm3 (4.0-10.5)
[2017-07-10 20:20] LABS: ALBUMIN 3.4 g/dL (3.4-5.0); ALKALINE PHOSPHATASE 85 U/L (46-116); ANION GAP 11.6 MEQ/L (5-15); BLOOD UREA NITROGEN 14 mg/dL (9-20); CHLORIDE 106 mEq/L (98-107); Calcium 7.8 mg/dL (8.5-10.1); Carbon Dioxide 27.2 mEq/L (21-32); Creatinine 1 1.11 mg/dl (0.55-1.30); EST GLOMERULAR FILTRATION RATE > 60 ML/MIN; Glucose 144 MG/DL (70-110); NT PRO BNP 103 pg/ml (0-450); Potassium 3.7 mEq/L (3.5-5.1); SGOT/AST 19 U/L (15-37); SGPT/ALT 27 U/L (12-78); SODIUM 141 mEq/L (136-145); Total Protein 6.2 gm/dL (6.4-8.2)
[2017-07-10 20:26] LABS: INFLUENZA A NEGATIVE (NEGATIVE); INFLUENZA B NEGATIVE (NEGATIVE); RESPIRATORY SYNCTIAL VIRUS NEGATIVE (Negative)
--- NOTE | 2017-07-10 20:58 | XRAY ---
Indication: Short of breath. COPD. Comparison: January 13, 2017. PA/lateral chest again hyperinflated with bibasilar infiltrates versus atelectasis, right greater than left. No consolidation or large effusion. Heart is not enlarged. Stable small hiatal hernia. Bony thorax intact again with mild osteopenia and degenerative changes. Impression: 1. Bibasilar infiltrates/atelectasis. Correlate clinically. 2. COPD. 3. Small hiatal hernia.
[2017-07-10 21:30] VITALS: BP 153/83; PULSE 72
[2017-07-10 21:31] VITALS: O2SAT 95
[2017-07-10] MEDS ORDERED: Zithromax 250 MG TABLET PO ONE (21:55)
[2017-07-10] MEDS ORDERED: KEFLEX 500 MG PO ONE (21:55)
[2017-07-10] MEDS ORDERED: KEFLEX 500 MG ONE (21:58)
[2017-07-10] MEDS ORDERED: Zithromax 250 MG TABLET ONE (21:58)
== END 2017-07-10 22:09 | disposition home or self-care (01) ==
LOC: ED 18:48
DX: J11.1 Influenza due to unidentified influenza virus with other respiratory manifestations (principal); R05 Cough
CPT/HCPCS: 36000; 36415; 71046; 80053; 83880; 84484; 85025; 85379; 87631; 93041; 94150; 94640; 96360; 96361; 96374; 99284; J2930; A9270-GY

== ENCOUNTER 2017-07-13 16:47 | Inpatient (IN) | payer MEDICARE ==
[2017-07-13] MEDS ORDERED: solu-MEDROL 125 MG IV ONE (16:53)
[2017-07-13] MEDS ORDERED: DUONEB 0.5-3 MG/3 ml Neb IH ONE ×2 (16:53→17:02)
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
[2017-07-13] MEDS ORDERED: solu-MEDROL 125 MG ONE (17:05)
[2017-07-13 17:08] LABS: Lactic Acid 1.4 (0.4-2.0); VBG BASE EXCESS 2.7 (-2.0-2.0); VBG CARBOXYHEMOGLOBIN 1.7 % T HGB (0.0-6.9); VBG HCO3- 26.2 meq/L (22-28); VBG HEMOGLOBIN 14.8; VBG O2 SATURATION 93.2 (95-100); VBG POTASSIUM 3.6 (3.5-5.1); VBG pH 7.47 (7.32-7.42)
[2017-07-13 17:09] LABS: Granulocyte Absolute (ANC) 8.12 (1.4-6.9); Hematocrit 42.6 % (42-50); Mean Cell Volume 84.4 fl (78-100); Mean Corpuscular Hemoglobin 27.7 pg (26-32); Mean Corpuscular Hgb Concent. 32.9 g/dl (32-36); Mean Platelet Volume 10.5 fl (6-9.5); Platelet Count 172 K/mm3 (150-450); Red Blood Count 5.05 M/mm3 (4.1-5.6); Red Cell Distribution Width 14.9 % (11.5-14.0); White Blood Count 9.9 K/mm3 (4.0-10.5)
--- NOTE | 2017-07-13 17:23 | XRAY ---
Indication: Fever and dyspnea. Comparison: July 10, 2017. Portable chest unchanged again hyperinflated with mild bibasilar infiltrates/atelectasis. Heart remains within normal limits for AP portable technique. Stable hiatal hernia. No new cardiopulmonary abnormalities.
[2017-07-13 17:33] LABS: ALBUMIN 3.7 g/dL (3.4-5.0); ALKALINE PHOSPHATASE 83 U/L (46-116); ANION GAP 13.4 MEQ/L (5-15); BLOOD UREA NITROGEN 15 mg/dL (9-20); CHLORIDE 103 mEq/L (98-107); Calcium 8.2 mg/dL (8.5-10.1); Carbon Dioxide 25.3 mEq/L (21-32); Creatinine 1 1.14 mg/dl (0.55-1.30); EST GLOMERULAR FILTRATION RATE > 60 ML/MIN; Glucose 111 MG/DL (70-110); Potassium 3.7 mEq/L (3.5-5.1); SGOT/AST 13 U/L (15-37); SGPT/ALT 22 U/L (12-78); SODIUM 138 mEq/L (136-145); Total Protein 6.7 gm/dL (6.4-8.2)
[2017-07-13] MEDS ORDERED: LEVOFLOXACIN 750MG/150ML D5W 750 MG/150 ML BAG IV STA (17:55)
[2017-07-13] MEDS ORDERED: LEVOFLOXACIN 750MG/150ML D5W 750 MG/150 ML BAG IV ONE (17:57)
[2017-07-13] MEDS ORDERED: TYLENOL 325 MG PO PRN (18:22)
[2017-07-13] MEDS ORDERED: DUONEB 0.5-3 MG/3 ml Neb IH SCH (19:00)
[2017-07-13] MEDS ORDERED: DUONEB 0.5-3 MG/3 ml Neb IH PRN (19:00)
[2017-07-13] MEDS: solu-MEDROL 125 MG IV SCH ×2 (19:41→23:48)
[2017-07-13] MEDS: Advair Hfa 230/21 Mcg COMMON CANISTER IH SCH (20:15)
[2017-07-13] MEDS: DUONEB 0.5-3 MG/3 ml Neb IH SCH ×2 (20:15→23:51)
[2017-07-13 22:47] LABS: Lymphocytes 10 % (24-44); Monocyte 9 % (0.0-12.0); Neutrophils 81 % (36.-66.); Total Cells Counted 100
[2017-07-13 22:48] LABS: Platelet Estimate NORMAL (NORMAL)
[2017-07-14] MEDS ORDERED: MOTRIN 200 MG ONE (00:02)
[2017-07-14] MEDS: DUONEB 0.5-3 MG/3 ml Neb IH SCH ×6 (03:41→23:52)
[2017-07-14] MEDS: solu-MEDROL 125 MG IV SCH (05:35)
[2017-07-14] MEDS: Advair Hfa 230/21 Mcg COMMON CANISTER IH SCH ×2 (07:05→18:49)
[2017-07-14] MEDS ORDERED: NovoLOG Insulin SQ PRN (08:30)
[2017-07-14] MEDS: NORVASC 5 MG PO SCH (09:23)
[2017-07-14] MEDS: Protonix 40MG Tablet PO SCH ×2 (09:23→09:25)
[2017-07-14] MEDS: ENOXAPARIN SODIUM SQ SCH (09:25)
[2017-07-14] MEDS: DELTASONE 20 MG PO SCH (09:25)
[2017-07-14] MEDS ORDERED: NON-FORMULARY ITEM (Amlodipine Besylate [Norvasc] 2.5 MG) PO SCH (10:00)
[2017-07-14] MEDS ORDERED: NON-FORMULARY ITEM (Omeprazole [Prilosec] 40 MG) PO SCH (10:00)
[2017-07-14] MEDS: Pepcid 20 MG PO SCH ×2 (11:12→21:24)
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
[2017-07-14] MEDS ORDERED: Tums EX 750 MG PO PRN (11:56)
[2017-07-14] MEDS ORDERED: solu-MEDROL 125 MG IV SCH (12:00)
[2017-07-14] MEDS ORDERED: LEVOFLOXACIN 750MG/150ML D5W 750 MG/150 ML BAG IV SCH (17:00)
[2017-07-15] MEDS: DUONEB 0.5-3 MG/3 ml Neb IH SCH ×2 (03:42→06:45)
[2017-07-15 06:19] LABS: BASOPHIL % 0.4 % (0.0-0.4); Basophil (Absolute #) 0.03 (0-0.4); Eosinophil (Absolute #) 0 (0-0.5); Granulocyte Absolute (ANC) 6.93 (1.4-6.9); Granulocytes % 81.2 % (36.0-66.0); Hematocrit 42.6 % (42-50); Hemoglobin 14.2 gm/dl (12.5-18.0); Lymphocyte (Absolute #) 0.69 (1.0-4.6); Lymphocytes % 8.1 % (24.0-44.0); Mean Cell Volume 83.5 fl (78-100); Mean Corpuscular Hemoglobin 27.8 pg (26-32); Mean Corpuscular Hgb Concent. 33.3 g/dl (32-36); Mean Platelet Volume 11.1 fl (6-9.5); Monocyte (Absolute #) 0.88 (0.0-1.3); Monocytes % 10.3 % (0.0-12.0); Platelet Count 179 K/mm3 (150-450); Red Cell Distribution Width 14.9 % (11.5-14.0); White Blood Count 8.5 K/mm3 (4.0-10.5)
[2017-07-15 06:28] LABS: ANION GAP 11.1 MEQ/L (5-15); BLOOD UREA NITROGEN 26 mg/dL (9-20); CHLORIDE 107 mEq/L (98-107); Calcium 8.4 mg/dL (8.5-10.1); Carbon Dioxide 28.1 mEq/L (21-32); Creatinine 1 1.17 mg/dl (0.55-1.30); EST GLOMERULAR FILTRATION RATE > 60 ML/MIN; Glucose 141 MG/DL (70-110); Potassium 3.7 mEq/L (3.5-5.1); SODIUM 143 mEq/L (136-145)
[2017-07-15] MEDS: Advair Hfa 230/21 Mcg COMMON CANISTER IH SCH (06:46)
[2017-07-15 07:30] VITALS: BP 160/75; PULSE 66; O2SAT 91
--- NOTE | 2017-07-15 08:50 | PCM.DCORD ---
- Discharge Discharge Date: 07/15/17 Disposition: Home, Self-Care Condition: Good Prescriptions: New Levofloxacin [Levofloxacin 500 MG Tablet] 500 mg PO DAILY #5 tablet Continue Ipratropium/Albuterol Sulfate [Combivent Respimat Common Canister] 1 puff IN QID Budesonide/Formoterol Fumarate [Symbicort 160-4.5 Mcg Inhaler] 2 puff IH BID Albuterol Sulfate [Proventil Hfa] 2 puff IN Q6H Amlodipine Besylate [Norvasc] 2.5 mg PO DAILY Omeprazole [Prilosec] 40 mg PO DAILY Albuterol 2.5 mg/3 ml Neb [Proventil 2.5 mg/3 ml Neb] 2.5 mg PO QID Methylprednisolone [Medrol 4 mg Dose Pack] 4 mg PO UD #1 tab Discontinued Cephalexin Mh 500 mg [Keflex 500 mg] 500 mg PO TID #30 capsule Additional Instructions: [facility] as needed. Finish the medrol dose pack that you were given in the ER this past Wednesday. Stop taking the azithromycin that you were prescribed in the ER. Return to the ER or Dr. Preciado's office if you have worsening symptoms or any concerns. Follow up with Dr. Preciado within the next 7 days. Follow up with: NAVDEEP PRECIADO MD [Primary Care Provider] - 1 Week
[2017-07-15] MEDS: DELTASONE 20 MG PO SCH (09:29)
[2017-07-15] MEDS: Pepcid 20 MG PO SCH (09:29)
[2017-07-15] MEDS: NORVASC 5 MG PO SCH (09:29)
[2017-07-15] MEDS: Protonix 40MG Tablet PO SCH (09:31)
[2017-07-15] MEDS: ENOXAPARIN SODIUM SQ SCH (09:31)
--- NOTE | 2017-07-20 11:25 | DS ---
DISCHARGE DIAGNOSES: 1) CHRONIC OBSTRUCTIVE PULMONARY DISEASE EXACERBATION. 2) HYPERTENSION. 3) GASTROESOPHAGEAL REFLUX DISEASE. 4) DIABETES MELLITUS TYPE 2. DISCHARGE PHYSICAL EXAMINATION: VITALS: Temperature current 98F, temperature max 98.5F, heart rate 60 to 74, respiratory rate 18 to 22, blood pressure 128 to 160 over 66 to 76. Oxygen saturation 91 to 95% on room air to 2 liters nasal cannula. GENERAL: The patient is lying in bed a pleasant talkative man in no acute distress. CVS: He has a regular rate and rhythm. No murmurs, gallops or rubs. CHEST: Clear to auscultation bilaterally. No crackles or wheezes. No tachypnea. No cough. ABDOMEN: Soft, nontender, nondistended with normal bowel sounds. EXTREMITIES: No clubbing, cyanosis or edema. SKIN: Warm, dry and intact. HOSPITAL COURSE: 1) CHRONIC OBSTRUCTIVE PULMONARY DISEASE EXACERBATION: He was initially started on IV steroids and levofloxacin. We continued levofloxacin during his hospital stay and will finish out levofloxacin 500 mg p.o. daily for five more days. I changed his steroids to prednisone 40 mg p.o. daily yesterday and he did well with this. He reports he has half Medrol Dosepak at home from his emergency room visit this past Wednesday so will have him finish this. He has his breathing treatments at home. He also reports today that he has home oxygen from the [place] that he can use as needed although it appears he does not like to use his oxygen as he told me yesterday it gives it chest pain. 2) HYPERTENSION: His blood pressure is fairly well controlled on his home antihypertensive so have him follow up with his primary care doctor. He states he uses Dr. Singleton as his primary care doctor. 3) GASTROESOPHAGEAL REFLUX DISEASE: He was continued on his Prilosec and he was also given ranitidine here and some Joseph's, this is well controlled this morning. 4) DIABETES MELLITUS TYPE 2: He was given a low dose sliding scale insulin. He usually controls this at home with is diet. His hemoglobin A1C was checked and was 6.8. Again will have him follow up with his primary care doctor concerning his diabetes care. DISCHARGE MEDICATIONS: Please see the discharge order. FOLLOW UP: He is to follow up with Dr. Singleton within the next seven days. DISPOSITION: The patient was discharged home in fair condition.
== END 2017-07-15 10:40 | disposition home or self-care (01) | DRG 192 ==
LOC: ED 16:47 → MED SURG 18:15
PROVIDERS: ADMIT Internal Medicine; ATTEND Internal Medicine
DX: J44.1 Chronic obstructive pulmonary disease with (acute) exacerbation (principal); R09.02 Hypoxemia; I10 Essential (primary) hypertension; K21.9 Gastro-esophageal reflux disease without esophagitis; E11.9 Type 2 diabetes mellitus without complications; Z87.891 Personal history of nicotine dependence; Z79.899 Other long term (current) drug therapy; Z99.81 Dependence on supplemental oxygen; H35.30 Unspecified macular degeneration
CPT/HCPCS: 36000; 36415; 71045; 80048; 80053; 82805; 82962; 83036; 83605; 85025; 87040; 87070; 93005; 93041; 94150; 94640; 94760; 96365; 99285; J1650; J1956; J2930; A9270-GY

== ENCOUNTER 2018-04-16 08:33 | Emergency (ER) | payer MEDICARE ==
[2018-04-16 08:44] VITALS: BP 146/72; PULSE 98
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
[2018-04-16] MEDS ORDERED: TORAdol 30 mg Injection IM ONE (09:20)
[2018-04-16] MEDS ORDERED: TORAdol 30 mg Injection ONE (09:24)
[2018-04-16 10:00] VITALS: O2SAT 94
--- NOTE | 2018-04-16 15:31 | XRAY ---
Indication: Pain and swelling 8 days. Comparison: None 2 views of the right humerus demonstrates mild osteopenia and moderate AC degenerative arthropathy. No other bony, articular, or soft tissue abnormalities.
== END 2018-04-16 10:37 | disposition home or self-care (01) ==
LOC: ED 08:33
DX: S46.211A Strain of muscle, fascia and tendon of other parts of biceps, right arm, initial encounter (principal); L03.113 Cellulitis of right upper limb; X50.0XXA Overexertion from strenuous movement or load, initial encounter; Z79.899 Other long term (current) drug therapy
CPT/HCPCS: 73060; 96372; 99284; J1885

== ENCOUNTER 2019-02-16 08:40 | Emergency (ER) | payer OTHER, MEDICARE ==
[2019-02-16 08:50] VITALS: O2SAT 93
--- NOTE | 2019-02-16 08:56 | ERPHSYRPT ---
- History of Present Illness Time Seen by Provider: 02/16/19 08:45 Source: patient Exam Limitations: no limitations Patient Subjective Stated Complaint: Pt states "I bumped my hand a week and a half ago and now it is swollen and hot." Triage Nursing Assessment: Pt presented alert and oriented X 3, skin pwd pt ambulates with an upright steady gait, able to speak in clear full sentences. PT left hand swollen. tender to ulner side left forearm. Physician History: Patient his his left hand and forearm one time 10 days ago and again 3 days ago. It is swollen and tender, and last evening his left hand was warm. The warmth has resolved today. Occurred: days ago (10 and 3 days ago) Method of Injury: direct blow Quality: constant Severity of Pain-Max: moderate Severity of Pain-Current: moderate Extremities Pain Location: forearm: left, hand: left Modifying Factors: Improves With: rest. Worsens With: movement Associated Symptoms: none, No back pain, No chills, No chest discomfort, No chest pain, No dyspnea, No fever, No jaw pain, No nausea, No neck pain, No sweating, No short of breath, No vomiting Allergies/Adverse Reactions: No Known Drug Allergies Allergy (Verified 07/10/17 19:03) Home Medications: Albuterol Sulfate [Proventil Hfa] 2 puff IN Q6H 09/27/13 [History] Amlodipine Besylate [Norvasc] 2.5 mg PO DAILY 09/27/13 [History] Budesonide/Formoterol Fumarate [Symbicort 160-4.5 Mcg Inhaler] 2 puff IH BID 12/04 [History] Ipratropium/Albuterol Sulfate [Combivent Respimat Common Canister] 1 puff IN QID 09/27/13 [History] Omeprazole [Prilosec] 40 mg PO DAILY 08/23/14 [History] Albuterol 2.5 mg/3 ml Neb [Proventil 2.5 mg/3 ml Neb] 2.5 mg PO QID [History] Hx Tetanus, Diphtheria Vaccination/Date Given: Yes Hx Influenza Vaccination/Date Given: Yes Hx Pneumococcal Vaccination/Date Given: Yes Immunizations Up to Date: Yes - Review of Systems Constitutional: No Fever, No Chills, No Lethargy Eyes: No Eye Pain, No Vision Changes Ears, Nose, & Throat: No Ear Pain, No Nose Pain, No Mouth Pain Respiratory: No Cough, No Dyspnea Cardiac: No Chest Pain, No Edema, No Syncope Abdominal/Gastrointestinal: No Abdominal Pain, No Nausea, No Vomiting, No Diarrhea Genitourinary Symptoms: No Dysuria, No Hematuria, No Flank Pain Musculoskeletal: No Back Pain, No Neck Pain Skin: No Rash Neurological: No Dizziness, No Focal Weakness, No Parasthesia, No Sensory Changes, No Tremors Psychological: No Emotional Lability, No Hallucinations Hematologic/Lymphatic: No Easy Bleeding, No Easy Bruising All Other Systems: Reviewed and Negative - Past Medical History Pertinent Past Medical History: Yes Neurological History: No Pertinent History ENT History: Macular Degeneration Cardiac History: Arrhythmia, Hypertension Respiratory History: Other Endocrine Medical History: Diabetes Type II Musculoskeletal History: Fractures GI Medical History: GERD History: No Pertinent History Psycho-Social History: No Pertinent History Male Reproductive Disorders: No Pertinent History Other Medical History: HE IS LEGALLY BLIND WITH MACULAR DEGENERATION. HE CAN SEE 3 TO 4 FEET IN FRONT OF HIM ONLY. - Past Surgical History Past Surgical History: Yes Neuro Surgical History: No Pertinent History Cardiac: Other Respiratory: No Pertinent History Gastrointestinal: No Pertinent History Genitourinary: No Pertinent History Musculoskeletal: No Pertinent History Male Surgical History: No Pertinent History Other Surgical History: rt femoral vein ruptured-- - Social History Smoking Status: Former smoker How long have you smoked: 30 yrs Exposure to second hand smoke: No Drug Use: none Patient Lives Alone: No - Nursing Vital Signs Nursing Vital Signs: Initial Vital Signs Temperature 97.9 F 02/16/19 08:45 Pulse Rate 108 H 02/16/19 08:45 Respiratory Rate 24 02/16/19 08:45 Blood Pressure 166/100 02/16/19 08:45 O2 Sat by Pulse Oximetry 93 L 02/16/19 08:45 Pain Scale Pain Intensity 8 - Physical Exam General Appearance: no apparent distress, alert Eyes, Ears, Nose, Throat Exam: moist mucous membranes Neck Exam: normal inspection, non-tender, supple, No meningismus Cardiovascular/Respiratory Exam: chest non-tender, normal breath sounds, regular rate/rhythm, no respiratory distress Abdominal Exam: non-tender, soft, No guarding Back Exam: No CVA tenderness, No vertebral tenderness Shoulder Exam: normal inspection, non-tender, no evidence of injury, normal ROM Elbow/Forearm Exam: normal inspection, normal ROM, bone tenderness (ulnar side mid shaft), No deformity Wrist Exam: normal inspection, non-tender, no evidence of injury, normal ROM, No bone tenderness, No deformity Hand Exam: normal inspection, normal ROM, bone tenderness (5th Metacarpal), ecchymosis, No abrasions, No deformity, No laceration Neuro/Tendon Exam: normal sensation, normal motor functions, normal tendon functions Mental Status Exam: alert, oriented x 3, cooperative Skin Exam: normal color, warm, dry, No cyanosis SpO2 Interpretation: normal SpO2: 93 O2 Delivery: Room Air - Course Nursing assessment & vital signs reviewed: Yes - Radiology Exams Left Forearm X-ray Interpretation: Interpreted by me, Reviewed by me, No Fracture, Nml Alignment, Nml Soft Tissues, Other (per radiologist interpretation: 3 views the left forearm demonstrates advanced the first metacarpal multangular degenerative changes of heterotopic ossification and minimal vascular calcifications. No other bony, articular or soft tissue abnormalities.) Left Hand X-ray Interpretation: Interpreted by me, Reviewed by me, No Fracture, Nml Alignment, Nml Soft Tissues, Other (rradiologist's interpretation: 3 views the left hand demonstrates distal first phalanx punctate soft tissue foreign body, osteopenia, mild degenerative changes all IP joints, then advance first metacarpal multangular degenerative changes with heterotopic ossifications. no other bony, articular, or soft tissue abnormalities.) Ordered Tests: Active Orders 24 hr Category Date Time Status FOREARM Stat Exams 02/16/19 08:49 Completed HAND (MINIMUM 3 VIEWS) Stat Exams 02/16/19 08:49 Completed - Progress Progress: unchanged Progress Note: 02/16/19 09:18 Patient is doing well. Patient has no signs of new puncture wounds, healed older injuries to the left distal 1st phalanx area, signifying most likely the punctate foreign body is most likely chronic and incidental finding on x-rays. I do not feel there is a need to go after it at this time due to the size of it and no signs of infection over it and distal to it. Patient has no signs of cellulitis to the dorsum or palmar aspect of the left and no signs of infection to the left forearm and is afebrile. 02/16/19 09:38 Patient's pulse is at 85. Counseled pt/family regarding: diagnosis, need for follow-up, rad results - Departure Departure Disposition: Home Clinical Impression: Contusion of left hand, initial encounter, Contusion of left forearm, initial encounter Hypertension Qualifiers: Hypertension type: unspecified Qualified Code(s): I10 - Essential (primary) hypertension Foreign body of finger of left hand, superficial Qualifiers: Encounter type: initial encounter Qualified Code(s): S60.459A - Superficial foreign body of unspecified finger, initial encounter Condition: Good Critical Care Time: No Referrals: NAVDEEP PRECIADO MD [Primary Care Provider] - Follow Up with PCP/3 days Instructions: Contusion (DC), Hand Pain (DC), Foreign Body in Skin (DC) Additional Instructions: Your x-rays were negative for any fractures or dislocations. An incidental very small foreign body was seen on your left thumb, but nothing needs to be performed to remove it as there are no signs of pain, infection or any loss of function near it and it is very small. There are no signs of infection to the skin of your left hand or left forearm. Return immediately back to return for any worsening swelling, worsening pain, new fevers, new redness, loss of function, or any other concerning signs or symptoms that were not present at today's emergency room visit for immediate reevaluation in the emergency department.
--- NOTE | 2019-02-16 09:15 | XRAY ---
Indication: Pain following injury. Comparison: None 2 views of the left forearm demonstrates advanced 1st metacarpal multangular degenerative changes with heterotopic ossifications and minimal vascular calcifications. No other bony, articular, or soft tissue abnormalities.
--- NOTE | 2019-02-16 09:19 | XRAY ---
Indication: Pain following injury. Comparison: None 3 views of the left hand demonstrates distal 1st phalanx punctate soft tissue foreign body, osteopenia, mild degenerative changes all IP joints, and advanced 1st metacarpal multangular degenerative changes with heterotopic ossifications. No other bony, articular, or soft tissue abnormalities.
[2019-02-16 09:40] VITALS: BP 154/98; PULSE 85
== END 2019-02-16 09:48 | disposition home or self-care (01) ==
LOC: ED 08:40
DX: S60.222A Contusion of left hand, initial encounter (principal); S50.12XA Contusion of left forearm, initial encounter; W22.8XXA Striking against or struck by other objects, initial encounter; I10 Essential (primary) hypertension
CPT/HCPCS: 73090; 73130; 99283

== ENCOUNTER 2019-03-29 15:27 | Emergency (ER) | payer MEDICARE ==
[2019-03-29] MEDS ORDERED: Sodium Chloride 0.9% 1000 ML 1,000 ML IV STA (15:39)
[2019-03-29] MEDS ORDERED: BABY ASPIRIN 81 MG CHEW PO ONE (15:45)
[2019-03-29] MEDS ORDERED: LOPRESSOR 5 MG/5 ML INJECTION IV ONE ×2 (15:45→15:52)
[2019-03-29] MEDS ORDERED: Sodium Chloride 0.9% 1000 ML 1,000 ML ONE (15:52)
[2019-03-29] MEDS ORDERED: BABY ASPIRIN 81 MG CHEW ONE (15:52)
--- NOTE | 2019-03-29 15:52 | ERPHSYRPT ---
- History of Present Illness Time Seen by Provider: 03/29/19 15:35 Source: patient Exam Limitations: no limitations Patient Subjective Stated Complaint: Pt states "I have had chest pain all morning and am short of breath." Triage Nursing Assessment: Pt presented sitting in a hospital wheelchair tachypneic, on supplimental O2 2 lpm intermittant. Physician History: Patient has had dyspnea since 10 AM on 03/29/2019 and found that he was in tachycardia with his atrial fibrillation history on his heart monitor. Patient' s also had some intermittent chest pain with this. Timing/Duration: today, hour(s) (5.5) Activities at Onset: none Severity of Dyspnea-Max: moderate Severity of Dyspnea-Current: mild Possible Cause: occasional episodes Modifying Factors: Improves With: nothing Associated Symptoms: intermittent, chest pain/discomfort, heart racing, No edema , No fever, No loss of appetite, No lightheadedness, No wheezing, No weakness, No ankle swelling, No chills, No hemoptysis, No calf pain, No dizziness, No heaviness, No lightheadedness, No leg swelling, No muscle spasms feet, No muscle spasms hands, No painful breathing, No productive cough, No sweating, No tightness, No tingling face International travel in last 2 weeks: No Allergies/Adverse Reactions: No Known Drug Allergies Allergy (Verified 07/10/17 19:03) Home Medications: Albuterol Sulfate [Proair Hfa] 8.5 gm IH DAILY 03/29/19 [History] Budesonide/Formoterol Fumarate [Symbicort 160-4.5 Mcg Inhaler] 10.2 gm IH DAILY 03/29/19 [History] Diltiazem HCl [Cartia Xt] 180 mg PO BID 03/29/19 [History] Ipratropium/Albuterol Sulfate [Combivent Inhaler] 15 gm IH DAILY 03/29/19 [ History] Metformin HCl [Fortamet] 500 mg PO DAILY 03/29/19 [History] Metoprolol Tartrate 25 mg PO DAILY 03/29/19 [History] Omeprazole 10 mg PO DAILY 03/29/19 [History] predniSONE [Prednisone] 10 mg PO DAILY 03/29/19 [History] Hx Tetanus, Diphtheria Vaccination/Date Given: Yes Hx Influenza Vaccination/Date Given: Yes Hx Pneumococcal Vaccination/Date Given: Yes Immunizations Up to Date: Yes - Review of Systems Constitutional: No Fever, No Chills, No Fatigue Eyes: No Eye Pain, No Vision Changes Ears, Nose, & Throat: No Nose Congestion, No Mouth Swelling, No Throat Pain Respiratory: Dyspnea, No Cough Cardiac: Chest Pain, No Edema, No Palpitations, No Syncope Abdominal/Gastrointestinal: No Abdominal Pain, No Nausea, No Vomiting, No Melena Genitourinary Symptoms: No Hematuria, No Flank Pain Musculoskeletal: No Back Pain, No Neck Pain, No Joint Swelling Skin: No Pruritis, No Rash Neurological: No Focal Weakness, No Paralysis, No Parasthesia, No Tremors Psychological: No Anxiety Endocrine: No Excessive Sweating Hematologic/Lymphatic: No Easy Bleeding, No Easy Bruising All Other Systems: Reviewed and Negative - Past Medical History Pertinent Past Medical History: Yes Neurological History: No Pertinent History ENT History: Macular Degeneration Cardiac History: Arrhythmia, Hypertension Respiratory History: Other Endocrine Medical History: Diabetes Type II Musculoskeletal History: Fractures GI Medical History: GERD History: No Pertinent History Psycho-Social History: No Pertinent History Male Reproductive Disorders: No Pertinent History Other Medical History: HE IS LEGALLY BLIND WITH MACULAR DEGENERATION. HE CAN SEE 3 TO 4 FEET IN FRONT OF HIM ONLY. - Past Surgical History Past Surgical History: Yes Neuro Surgical History: No Pertinent History Cardiac: Other Respiratory: No Pertinent History Gastrointestinal: No Pertinent History Genitourinary: No Pertinent History Musculoskeletal: No Pertinent History Male Surgical History: No Pertinent History Other Surgical History: rt femoral vein ruptured--1959's - Social History Smoking Status: Former smoker How long have you smoked: 30 yrs Exposure to second hand smoke: No Drug Use: none Patient Lives Alone: No - Nursing Vital Signs Nursing Vital Signs: Initial Vital Signs Temperature 99.9 F 03/29/19 15:28 Pulse Rate 99 H 03/29/19 15:28 Respiratory Rate 26 H 03/29/19 15:28 Blood Pressure 140/81 03/29/19 15:28 O2 Sat by Pulse Oximetry 94 L 03/29/19 15:28 Pain Scale Pain Intensity 2 - Physical Exam General Appearance: no apparent distress, alert Eye Exam: PERRL/EOMI, eyes nml inspection, No scleral icterus, No pale conjunctivae Ears, Nose, Throat Exam: normal pharynx, No nasal congestion Neck Exam: normal inspection, non-tender, supple, full range of motion, No Brudzinski, No JVD Respiratory Exam: normal breath sounds, lungs clear, airway intact, No chest tenderness, No respiratory distress, No accessory muscle use, No crackles/rales , No rhonchi, No wheezing Cardiovascular/Chest Exam: tachycardia, irregular, No JVD Abdominal/Gastrointestinal Exam: soft, normal bowel sounds, No tenderness, No mass, No ecchymosis, No rebound Extremity Exam: non-tender, normal range of motion, normal inspection, no calf tenderness, no pedal edema, pelvis stable Neurologic Exam: alert, oriented x 3, cooperative, preconstruction manager II-XII nml as tested, normal mood/affect, sensation nml Skin Exam: normal color, warm, dry, No rash, No petechiae, No jaundice, No cyanosis SpO2 Interpretation: normal SpO2: 94 O2 Delivery: Nasal Cannula - Course Nursing assessment & vital signs reviewed: Yes EKG Interpreted by Me: RATE (113), A-fib, Left Maynard Deviation, NORMAL QRS, NORMAL ST-T, Other (no appreciable change from 07/13/2017) Rhythm Strip: Atrial Fibrillation - Radiology Exams Chest X-ray Interpretation: Reviewed by me, No Pneumonia, No Pneumothorax, Nml Heart Size, No Infiltrates, Other (per radiologist interpretation: Portable chest again demonstrates COPD. No focal infiltrate, consolidation, or large effusion. It is not enlarged with stable small hiatal hernia. Bony thorax intact again with mild degenerative changes. Overall impression: Stable COPD and hiatal hernia. No new/acute cardiopulmonary abnormalities.) - CT Exams Chest CT Interpretation: Other (per radiologist's interpretation: 07/30/2016: Again negative for pulmonary embolus. New bilateral lower lobe consolidating airspace opacities posteriorly.. Rule out aspiration pneumonia. Stable emphysema and moderate size hepatic hemangioma.) Ordered Tests: Active Orders 24 hr Category Date Time Status Bagel Maker STAT Care 03/29/19 15:43 Active EKG-ER Only STAT Care 03/29/19 15:39 Active IV Insertion STAT Care 03/29/19 15:39 Active Oxygen-ED Only Nasal Cannula 2 lpm Care 03/29/19 15:39 Active Pulse Oximetry (ED) STAT Care 03/29/19 15:39 Active CHEST 1 VIEW (PORTABLE) Stat Exams 03/29/19 15:40 Completed CHEST WITH CONTRAST [CT] Stat Exams 03/29/19 20:32 Taken AMYLASE Stat Lab 03/29/19 16:15 Completed BLOOD CULTURE Stat Lab 03/29/19 16:22 Received CBC W DIFF Stat Lab 03/29/19 15:39 Completed CMP Stat Lab 03/29/19 16:17 Completed LIPASE Stat Lab 03/29/19 16:15 Completed Lactic Acid Stat Lab 03/29/19 16:00 Completed Lactic Acid Stat Lab 03/29/19 19:10 Completed Lactic Acid Stat Lab 03/29/19 21:45 Results MAGNESIUM Stat Lab 03/29/19 16:15 Completed Manual Differential NC Stat Lab 03/29/19 15:39 Completed NT PRO BNP Stat Lab 03/29/19 16:15 Completed PROTIME WITH INR Stat Lab 03/29/19 16:15 Completed PTT Stat Lab 03/29/19 16:15 Completed TROPONIN Q3H Lab 03/29/19 16:15 Completed TROPONIN Q3H Lab 03/29/19 18:45 Completed TROPONIN Q3H Lab 03/29/19 22:05 Completed TROPONIN Q3H Lab 03/30/19 00:45 Ordered TROPONIN Q3H Lab 03/30/19 03:45 Ordered UA W/RFX UR CULTURE Stat Lab 03/29/19 18:37 Completed VENOUS BLOOD GAS Stat Lab 03/29/19 16:00 Completed VENOUS BLOOD GAS Stat Lab 03/29/19 22:00 Completed Medication Summary Generic Name Dose Route Start Last Admin Trade Name Freq PRN Reason Stop Dose Admin Piperacillin Sod/Tazobactam Sod 3.375 gm in 100 mls @ 200 mls/hr 03/29/19 22: 26 03/29/19 22:37 Zosyn 3.375gm/100 Ml D5w IV 03/29/19 22:55 100 ml/hr STAT STA 100 mls/hr Administration Discontinued Medications Generic Name Dose Route Start Last Admin Trade Name Freq PRN Reason Stop Dose Admin Acetaminophen 1,000 mg 03/29/19 22:17 03/29/19 22:21 Tylenol Extra Strength 500 Mg PO 03/29/19 22:18 1,000 mg STAT STA Administration Acetaminophen Confirm 03/29/19 22:18 Tylenol Extra Strength 500 Mg Administered 03/29/19 22:19 Dose 1,000 mg .ROUTE .STK-MED ONE Aspirin 324 mg 03/29/19 15:45 03/29/19 15:54 Baby Aspirin 81 Mg Chew PO 03/29/19 15:46 324 mg STAT ONE Administration Aspirin Confirm 03/29/19 15:52 Baby Aspirin 81 Mg Chew Administered 03/29/19 15:53 Dose 324 mg .ROUTE .STK-MED ONE Calcium Gluconate 1,000 mg 03/29/19 16:51 03/29/19 17:23 Calcium Gluconate 10% 1000 Mg IV 03/29/19 16:52 1,000 mg STAT ONE Administration Calcium Gluconate Confirm 03/29/19 17:22 Calcium Gluconate 10% 1000 Mg Administered 03/29/19 17:23 Dose 1,000 mg IV .STK-MED ONE Sodium Chloride 1,000 mls @ 999 mls/hr 03/29/19 15:39 03/29/19 17:11 Sodium Chloride 0.9% 1000 Ml IV 03/29/19 16:39 Infused .Q1H1M STA Infusion Sodium Chloride Confirm 03/29/19 15:52 Sodium Chloride 0.9% 1000 Ml Administered 03/29/19 15:53 Dose 1,000 mls @ ud .ROUTE .STK-MED ONE Piperacillin Sod/Tazobactam Sod Confirm 03/29/19 22:33 Zosyn 3.375gm/100 Ml D5w Administered 03/29/19 22:34 Dose 3.375 gm in 100 mls @ ud IV .STK-MED ONE Metoprolol Tartrate 5 mg 03/29/19 15:45 03/29/19 15:55 Lopressor 5 Mg/5 Ml Injection IV 03/29/19 15:46 5 mg STAT ONE Administration Metoprolol Tartrate Confirm 03/29/19 15:52 Lopressor 5 Mg/5 Ml Injection Administered 03/29/19 15:53 Dose 5 mg IV .STK-MED ONE Lab/Rad Data: Laboratory Result Diagrams 03/29/19 15:39 03/29/19 16:17 Laboratory Results 03/29/19 03/29/19 03/29/19 Range/Units 22:05 22:00 21:45 WBC (4.0-10.5) K/mm3 RBC (4.1-5.6) M/mm3 Hgb (12.5-18.0) gm/dl Hct (42-50) % MCV (78-100) fl MCH (26-32) pg MCHC (32-36) g/dl RDW (11.5-14.0) % Plt Count (150-450) K/mm3 MPV (6-9.5) fl Segmented Neutrophils (36.-66.) % Band Neutrophils (0.0-2.0) % Lymphocytes (Manual) (24-44) % Monocytes (Manual) (0.0-12.0) % Toxic Granulation Platelet Estimate (NORMAL) RBC Morphology PT (8.83-12.87) SECONDS INR (0.8-3.0) APTT (24.1-36.1) SECONDS pO2/FiO2 Ratio 21.0 % VBG pH 7.38 (7.32-7.42) VBG pCO2 at Pat Temp 49 (42-55) mm/Hg VBG pO2 at Pat Temp 24 L (25-40) mm/Hg VBG HCO3 29.0 H (22-28) meq/L VBG O2 Sat (Wade) 38.0 L (95-100) VBG Base Excess 2.9 H (-2.0-2.0) VBG Hemoglobin 15.0 VBG Carboxyhemoglobin 2.6 (0.0-6.9) % T HGB POC Potassium 4.4 (3.5-5.1) Sodium (137-145) mmol/L Potassium (3.5-5.1) mmol/L Chloride (98-107) mmol/L Carbon Dioxide (22-30) mmol/L Anion Gap (5-15) MEQ/L BUN (9-20) mg/dL Creatinine (0.66-1.25) mg/dL Estimated GFR ML/MIN Glucose (74-106) mg/dL Lactic Acid 3.6 H (0.4-2.0) Calcium (8.4-10.2) mg/dL Magnesium (1.6-2.3) mg/dL Total Bilirubin (0.2-1.3) mg/dL AST (17-59) U/L ALT (0-50) U/L Alkaline Phosphatase (38-126) U/L Troponin I < 0.012 (0.000-0.034) ng/mL NT-Pro-B Natriuret Pep (0-1800) pg/mL Serum Total Protein (6.3-8.2) g/dL Albumin (3.5-5.0) g/dL Amylase (30-110) U/L Lipase (23-300) U/L Urine Color (YELLOW) Urine Appearance (CLEAR) Urine pH (5-6) Ur Specific [place] (1.005-1.025) Urine Protein (Negative) Urine Ketones (NEGATIVE) Urine Blood (0-5) Fidencio/ul Urine Nitrite (NEGATIVE) Urine Bilirubin (NEGATIVE) Urine Urobilinogen (0-1) mg/dL Ur Leukocyte Esterase (NEGATIVE) Urine WBC (Auto) (0-5) /HPF Urine RBC (Auto) (0-2) /HPF U Epithel Cells (Auto) (FEW) /HPF Urine Bacteria (Auto) (NEGATIVE) /HPF Urine Mucus (Auto) (NEGATIVE) /HPF Urine Culture Reflexed (NO) Urine Glucose (NEGATIVE) mg/dL 03/29/19 03/29/19 03/29/19 Range/Units 19:10 18:45 18:37 WBC (4.0-10.5) K/mm3 RBC (4.1-5.6) M/mm3 Hgb (12.5-18.0) gm/dl Hct (42-50) % MCV (78-100) fl MCH (26-32) pg MCHC (32-36) g/dl RDW (11.5-14.0) % Plt Count (150-450) K/mm3 MPV (6-9.5) fl Segmented Neutrophils (36.-66.) % Band Neutrophils (0.0-2.0) % Lymphocytes (Manual) (24-44) % Monocytes (Manual) (0.0-12.0) % Toxic Granulation Platelet Estimate (NORMAL) RBC Morphology PT (8.83-12.87) SECONDS INR (0.8-3.0) APTT (24.1-36.1) SECONDS pO2/FiO2 Ratio % VBG pH (7.32-7.42) VBG pCO2 at Pat Temp (42-55) mm/Hg VBG pO2 at Pat Temp (25-40) mm/Hg VBG HCO3 (22-28) meq/L VBG O2 Sat (Wade) (95-100) VBG Base Excess (-2.0-2.0) VBG Hemoglobin VBG Carboxyhemoglobin (0.0-6.9) % T HGB POC Potassium (3.5-5.1) Sodium (137-145) mmol/L Potassium (3.5-5.1) mmol/L Chloride (98-107) mmol/L Carbon Dioxide (22-30) mmol/L Anion Gap (5-15) MEQ/L BUN (9-20) mg/dL Creatinine (0.66-1.25) mg/dL Estimated GFR ML/MIN Glucose (74-106) mg/dL Lactic Acid 1.9 (0.4-2.0) Calcium (8.4-10.2) mg/dL Magnesium (1.6-2.3) mg/dL Total Bilirubin (0.2-1.3) mg/dL AST (17-59) U/L ALT (0-50) U/L Alkaline Phosphatase (38-126) U/L Troponin I < 0.012 (0.000-0.034) ng/mL NT-Pro-B Natriuret Pep (0-1800) pg/mL Serum Total Protein (6.3-8.2) g/dL Albumin (3.5-5.0) g/dL Amylase (30-110) U/L Lipase (23-300) U/L Urine Color YELLOW (YELLOW) Urine Appearance CLEAR (CLEAR) Urine pH 5.0 (5-6) Ur Specific [place] 1.020 (1.005-1.025) Urine Protein NEGATIVE (Negative) Urine Ketones NEGATIVE (NEGATIVE) Urine Blood NEGATIVE (0-5) Fidencio/ul Urine Nitrite NEGATIVE (NEGATIVE) Urine Bilirubin NEGATIVE (NEGATIVE) Urine Urobilinogen NEGATIVE (0-1) mg/dL Ur Leukocyte Esterase NEGATIVE (NEGATIVE) Urine WBC (Auto) NONE (0-5) /HPF Urine RBC (Auto) NONE (0-2) /HPF U Epithel Cells (Auto) NONE (FEW) /HPF Urine Bacteria (Auto) NONE (NEGATIVE) /HPF Urine Mucus (Auto) SLIGHT (NEGATIVE) /HPF Urine Culture Reflexed NO (NO) Urine Glucose 150 (NEGATIVE) mg/dL 03/29/19 03/29/19 03/29/19 Range/Units 16:17 16:15 16:15 WBC (4.0-10.5) K/mm3 RBC (4.1-5.6) M/mm3 Hgb (12.5-18.0) gm/dl Hct (42-50) % MCV (78-100) fl MCH (26-32) pg MCHC (32-36) g/dl RDW (11.5-14.0) % Plt Count (150-450) K/mm3 MPV (6-9.5) fl Segmented Neutrophils (36.-66.) % Band Neutrophils (0.0-2.0) % Lymphocytes (Manual) (24-44) % Monocytes (Manual) (0.0-12.0) % Toxic Granulation Platelet Estimate (NORMAL) RBC Morphology PT (8.83-12.87) SECONDS INR (0.8-3.0) APTT (24.1-36.1) SECONDS pO2/FiO2 Ratio % VBG pH (7.32-7.42) VBG pCO2 at Pat Temp (42-55) mm/Hg VBG pO2 at Pat Temp (25-40) mm/Hg VBG HCO3 (22-28) meq/L VBG O2 Sat (Wade) (95-100) VBG Base Excess (-2.0-2.0) VBG Hemoglobin VBG Carboxyhemoglobin (0.0-6.9) % T HGB POC Potassium (3.5-5.1) Sodium 141 (137-145) mmol/L Potassium 3.9 (3.5-5.1) mmol/L Chloride 107 (98-107) mmol/L Carbon Dioxide 24 (22-30) mmol/L Anion Gap 14.1 (5-15) MEQ/L BUN 18 (9-20) mg/dL Creatinine 0.75 (0.66-1.25) mg/dL Estimated GFR > 60.0 ML/MIN Glucose 198 H (74-106) mg/dL Lactic Acid (0.4-2.0) Calcium 8.3 L (8.4-10.2) mg/dL Magnesium (1.6-2.3) mg/dL Total Bilirubin 0.50 (0.2-1.3) mg/dL AST 18 (17-59) U/L ALT 21 (0-50) U/L Alkaline Phosphatase 39 (38-126) U/L Troponin I < 0.012 (0.000-0.034) ng/mL NT-Pro-B Natriuret Pep (0-1800) pg/mL Serum Total Protein 5.7 L (6.3-8.2) g/dL Albumin 3.3 L (3.5-5.0) g/dL Amylase 101 (30-110) U/L Lipase 68 (23-300) U/L Urine Color (YELLOW) Urine Appearance (CLEAR) Urine pH (5-6) Ur Specific [place] (1.005-1.025) Urine Protein (Negative) Urine Ketones (NEGATIVE) Urine Blood (0-5) Fidencio/ul Urine Nitrite (NEGATIVE) Urine Bilirubin (NEGATIVE) Urine Urobilinogen (0-1) mg/dL Ur Leukocyte Esterase (NEGATIVE) Urine WBC (Auto) (0-5) /HPF Urine RBC (Auto) (0-2) /HPF U Epithel Cells (Auto) (FEW) /HPF Urine Bacteria (Auto) (NEGATIVE) /HPF Urine Mucus (Auto) (NEGATIVE) /HPF Urine Culture Reflexed (NO) Urine Glucose (NEGATIVE) mg/dL 03/29/19 03/29/19 03/29/19 Range/Units 16:15 16:15 16:00 WBC (4.0-10.5) K/mm3 RBC (4.1-5.6) M/mm3 Hgb (12.5-18.0) gm/dl Hct (42-50) % MCV (78-100) fl MCH (26-32) pg MCHC (32-36) g/dl RDW (11.5-14.0) % Plt Count (150-450) K/mm3 MPV (6-9.5) fl Segmented Neutrophils (36.-66.) % Band Neutrophils (0.0-2.0) % Lymphocytes (Manual) (24-44) % Monocytes (Manual) (0.0-12.0) % Toxic Granulation Platelet Estimate (NORMAL) RBC Morphology PT 11.0 (8.83-12.87) SECONDS INR 0.97 (0.8-3.0) APTT 27.3 (24.1-36.1) SECONDS pO2/FiO2 Ratio 21.0 % VBG pH 7.41 (7.32-7.42) VBG pCO2 at Pat Temp 40 L (42-55) mm/Hg VBG pO2 at Pat Temp 61 H (25-40) mm/Hg VBG HCO3 25.4 (22-28) meq/L VBG O2 Sat (Wade) 93.0 L (95-100) VBG Base Excess 0.7 (-2.0-2.0) VBG Hemoglobin 15.1 VBG Carboxyhemoglobin 3.7 (0.0-6.9) % T HGB POC Potassium 4.6 (3.5-5.1) Sodium (137-145) mmol/L Potassium (3.5-5.1) mmol/L Chloride (98-107) mmol/L Carbon Dioxide (22-30) mmol/L Anion Gap (5-15) MEQ/L BUN (9-20) mg/dL Creatinine (0.66-1.25) mg/dL Estimated GFR ML/MIN Glucose (74-106) mg/dL Lactic Acid 3.9 H (0.4-2.0) Calcium (8.4-10.2) mg/dL Magnesium 1.6 (1.6-2.3) mg/dL Total Bilirubin (0.2-1.3) mg/dL AST (17-59) U/L ALT (0-50) U/L Alkaline Phosphatase (38-126) U/L Troponin I (0.000-0.034) ng/mL NT-Pro-B Natriuret Pep 717 (0-1800) pg/mL Serum Total Protein (6.3-8.2) g/dL Albumin (3.5-5.0) g/dL Amylase (30-110) U/L Lipase (23-300) U/L Urine Color (YELLOW) Urine Appearance (CLEAR) Urine pH (5-6) Ur Specific [place] (1.005-1.025) Urine Protein (Negative) Urine Ketones (NEGATIVE) Urine Blood (0-5) Fidencio/ul Urine Nitrite (NEGATIVE) Urine Bilirubin (NEGATIVE) Urine Urobilinogen (0-1) mg/dL Ur Leukocyte Esterase (NEGATIVE) Urine WBC (Auto) (0-5) /HPF Urine RBC (Auto) (0-2) /HPF U Epithel Cells (Auto) (FEW) /HPF Urine Bacteria (Auto) (NEGATIVE) /HPF Urine Mucus (Auto) (NEGATIVE) /HPF Urine Culture Reflexed (NO) Urine Glucose (NEGATIVE) mg/dL 03/29/19 Range/Units 15:39 WBC 15.3 H (4.0-10.5) K/mm3 RBC 5.31 (4.1-5.6) M/mm3 Hgb 14.9 (12.5-18.0) gm/dl Hct 45.9 (42-50) % MCV 86.4 (78-100) fl MCH 28.1 (26-32) pg MCHC 32.5 (32-36) g/dl RDW 16.6 H (11.5-14.0) % Plt Count 161 (150-450) K/mm3 MPV 10.8 H (6-9.5) fl Segmented Neutrophils 86 H (36.-66.) % Band Neutrophils 2 (0.0-2.0) % Lymphocytes (Manual) 8 L (24-44) % Monocytes (Manual) 4 (0.0-12.0) % Toxic Granulation 1+ Platelet Estimate NORMAL (NORMAL) RBC Morphology NORMAL PT (8.83-12.87) SECONDS INR (0.8-3.0) APTT (24.1-36.1) SECONDS pO2/FiO2 Ratio % VBG pH (7.32-7.42) VBG pCO2 at Pat Temp (42-55) mm/Hg VBG pO2 at Pat Temp (25-40) mm/Hg VBG HCO3 (22-28) meq/L VBG O2 Sat (Wade) (95-100) VBG Base Excess (-2.0-2.0) VBG Hemoglobin VBG Carboxyhemoglobin (0.0-6.9) % T HGB POC Potassium (3.5-5.1) Sodium (137-145) mmol/L Potassium (3.5-5.1) mmol/L Chloride (98-107) mmol/L Carbon Dioxide (22-30) mmol/L Anion Gap (5-15) MEQ/L BUN (9-20) mg/dL Creatinine (0.66-1.25) mg/dL Estimated GFR ML/MIN Glucose (74-106) mg/dL Lactic Acid (0.4-2.0) Calcium (8.4-10.2) mg/dL Magnesium (1.6-2.3) mg/dL Total Bilirubin (0.2-1.3) mg/dL AST (17-59) U/L ALT (0-50) U/L Alkaline Phosphatase (38-126) U/L Troponin I (0.000-0.034) ng/mL NT-Pro-B Natriuret Pep (0-1800) pg/mL Serum Total Protein (6.3-8.2) g/dL Albumin (3.5-5.0) g/dL Amylase (30-110) U/L Lipase (23-300) U/L Urine Color (YELLOW) Urine Appearance (CLEAR) Urine pH (5-6) Ur Specific [place] (1.005-1.025) Urine Protein (Negative) Urine Ketones (NEGATIVE) Urine Blood (0-5) Fidencio/ul Urine Nitrite (NEGATIVE) Urine Bilirubin (NEGATIVE) Urine Urobilinogen (0-1) mg/dL Ur Leukocyte Esterase (NEGATIVE) Urine WBC (Auto) (0-5) /HPF Urine RBC (Auto) (0-2) /HPF U Epithel Cells (Auto) (FEW) /HPF Urine Bacteria (Auto) (NEGATIVE) /HPF Urine Mucus (Auto) (NEGATIVE) /HPF Urine Culture Reflexed (NO) Urine Glucose (NEGATIVE) mg/dL - Progress Progress: re-examined Air Movement: good Progress Note: 03/29/19 17:20 Patient denies any dyspnea, palpitations, chest pain, fever, back pain or abdominal pain. Patient has remained rate controlled after IV metoprolol of 5mg , with atrial fibrillation in the 80s currently 03/29/19 17:40 Patient states he is not on any anti-coagulation for his atrial fibrillation. 03/29/19 18:40 Patient is doing well, rate controlled atrial fibrillation on the monitor. Denies any shortness of breath or chest pain. Patient is feeling hungry, so son will get him something to eat. 03/29/19 20:30 Patient is stating he is having Right sided chest pain only. I will get a CT Chest with IV contrast. 03/29/19 22:25 Notified the patient of his bilateral lower lobe pneumonia on CT. Patient would like transferred to [facility]. 03/29/19 22:50 Patient more comfortable sitting upright in the bed. Blood Culture(s) Obtained: Yes Antibiotics given: No Discussed with .: Other (@22:42, Dr Greg Antonio, Emergency Department Attending at [facility], accepted the patient for transfer to [facility] through the Transfer Center at [facility]) Counseled pt/family regarding: lab results, diagnosis, need for follow-up, rad results - Departure Departure Disposition: Home Clinical Impression: Atrial fibrillation with RVR, Hypocalcemia, Elevated lactic acid level, Right- sided chest pain Dyspnea Qualifiers: Dyspnea type: unspecified Qualified Code(s): R06.00 - Dyspnea, unspecified Hypertension Qualifiers: Hypertension type: essential hypertension Qualified Code(s): I10 - Essential ( primary) hypertension Leukocytosis, unspecified Qualifiers: Leukocytosis type: unspecified Qualified Code(s): D72.829 - Elevated white blood cell count, unspecified Pneumonia of both lower lobes Qualifiers: Aspiration pneumonia type: unspecified Condition: Fair Critical Care Time: No Referrals: NAVDEEP PRECIADO MD [Primary Care Provider] - 03/30/19 Instructions: Atypical Chest Pain, Atrial Fibrillation (DC), High Blood Pressure (DC), Shortness of Breath (Dyspnea) (DC), Hypocalcemia (DC) Additional Instructions: Return immediately back to the emergency department if any worsening shortness of breath, new chest pain, new back pain, new abdominal pain, new weakness on one side of the body, any facial droop, new changes speech, new loss of sensation anywhere or any other concerning signs or symptoms that were not present at today's emergency department visit for immediate reevaluation in the emergency department.
--- NOTE | 2019-03-29 16:12 | XRAY ---
Indication: Short of breath. Comparison: July 06, 2018. Portable chest again demonstrates COPD. No focal infiltrate, consolidation, or large effusion. Heart is not enlarged with stable small hiatal hernia. Bony thorax intact again with mild degenerative changes. Impression: Stable COPD and hiatal hernia. No new/acute cardiopulmonary abnormalities.
[2019-03-29 16:24] LABS: Lactic Acid 3.9 (0.4-2.0); VBG BASE EXCESS 0.7 (-2.0-2.0); VBG CARBOXYHEMOGLOBIN 3.7 % T HGB (0.0-6.9); VBG HCO3- 25.4 meq/L (22-28); VBG HEMOGLOBIN 15.1; VBG PCO2 40 mm/Hg (42-55); VBG PO2 61 mm/Hg (25-40); VBG POTASSIUM 4.6 (3.5-5.1); VBG pH 7.41 (7.32-7.42)
[2019-03-29 16:28] LABS: Hematocrit 45.9 % (42-50); Hemoglobin 14.9 gm/dl (12.5-18.0); Mean Cell Volume 86.4 fl (78-100); Mean Corpuscular Hemoglobin 28.1 pg (26-32); Mean Corpuscular Hgb Concent. 32.5 g/dl (32-36); Mean Platelet Volume 10.8 fl (6-9.5); Platelet Count 161 K/mm3 (150-450); Red Blood Count 5.31 M/mm3 (4.1-5.6); Red Cell Distribution Width 16.6 % (11.5-14.0); White Blood Count 15.3 K/mm3 (4.0-10.5)
[2019-03-29 16:42] LABS: INR 0.97 (0.8-3.0)
[2019-03-29 16:44] LABS: AMYLASE 101 U/L (30-110); LIPASE 68 U/L (23-300); MAGNESIUM 1.6 mg/dL (1.6-2.3); PTT 27.3 SECONDS (24.1-36.1)
[2019-03-29 16:46] LABS: ALBUMIN 3.3 g/dL (3.5-5.0); ALKALINE PHOSPHATASE 39 U/L (38-126); ANION GAP 14.1 MEQ/L (5-15); BLOOD UREA NITROGEN 18 mg/dL (9-20); CHLORIDE 107 mmol/L (98-107); Calcium 8.3 mg/dL (8.4-10.2); Carbon Dioxide 24 mmol/L (22-30); Creatinine 1 0.75 mg/dL (0.66-1.25); Glucose 198 mg/dL (74-106); Potassium 3.9 mmol/L (3.5-5.1); SGOT/AST 18 U/L (17-59); SGPT/ALT 21 U/L (0-50); SODIUM 141 mmol/L (137-145); Total Protein 5.7 g/dL (6.3-8.2)
[2019-03-29 16:51] LABS: BAND 2 % (0.0-2.0); Lymphocytes 8 % (24-44); Monocyte 4 % (0.0-12.0); Neutrophils 86 % (36.-66.); Platelet Estimate NORMAL (NORMAL); Total Cells Counted 100; Toxic Granulation 1+
[2019-03-29] MEDS ORDERED: Calcium Gluconate 10% 1000 MG IV ONE ×2 (16:51→17:22)
[2019-03-29 19:16] LABS: Lactic Acid 1.9 (0.4-2.0)
[2019-03-29 19:21] LABS: Appearance CLEAR (CLEAR); Bilirubin NEGATIVE (NEGATIVE); Blood NEGATIVE Ery/ul (0-5); Glucose 150 mg/dL (NEGATIVE); Ketones NEGATIVE (NEGATIVE); Leukocyte Esterase NEGATIVE (NEGATIVE); Mucus SLIGHT /HPF (NEGATIVE); Nitrite NEGATIVE (NEGATIVE); Protein,Urine Dip NEGATIVE (Negative); Urobilinogen NEGATIVE mg/dL (0-1)
[2019-03-29 22:15] LABS: VBG BASE EXCESS 2.9 (-2.0-2.0); VBG CARBOXYHEMOGLOBIN 2.6 % T HGB (0.0-6.9); VBG POTASSIUM 4.4 (3.5-5.1); VBG pH 7.38 (7.32-7.42)
[2019-03-29] MEDS ORDERED: TYLENOL EXTRA STRENGTH 500 MG PO STA (22:17)
[2019-03-29] MEDS ORDERED: TYLENOL EXTRA STRENGTH 500 MG ONE (22:18)
[2019-03-29 22:19] LABS: Lactic Acid 3.6 (0.4-2.0)
[2019-03-29] MEDS ORDERED: Zosyn 3.375GM/100 Ml D5W 3.375 GM/100 ML IVPB IV STA (22:26)
[2019-03-29] MEDS ORDERED: Zosyn 3.375GM/100 Ml D5W 3.375 GM/100 ML IVPB IV ONE (22:33)
[2019-03-29 22:36] VITALS: PULSE 98
[2019-03-29 23:09] VITALS: BP 121/70; O2SAT 95
--- NOTE | 2019-03-30 08:39 | XRAY ---
Indication: Bilateral chest pain and short of breath. COPD. Multiple contiguous axial images obtained through the chest using 80 cc Isovue 370 contrast and PE protocol. Comparison: July 30, 2016. There is good opacification of the pulmonary arteries to include the lobar and segmental branches. No filling defect or pulmonary embolus. Heart is not enlarged. Aorta remains mildly arteriosclerotic without aneurysm/dissection. No pathologic mediastinal/hilar lymphadenopathy. There remains large hiatal hernia with partial intrathoracic stomach. Lungs again demonstrates diffuse pulmonary emphysema with minimal scattered fibrosis/scarring. There are new posterior bibasilar consolidating airspace opacities without large effusion. Remaining upper lungs are clear. Bony thorax again demonstrates mild osteopenia and mild degenerative changes throughout the spine. Limited upper abdomen is unremarkable. Impression: 1. Again negative pulmonary embolus. 2. New bibasilar posterior consolidating airspace disease. Rule out aspiration pneumonia. 3. Stable pulmonary emphysema and large hiatal hernia. CT DI 19.73
== END 2019-03-29 23:58 | disposition short-term general hospital (02) ==
LOC: ED 15:27
DX: I48.20 Chronic atrial fibrillation, unspecified (principal); R74.0 Nonspecific elevation of levels of transaminase and lactic acid dehydrogenase [LDH]; R07.89 Other chest pain; R06.00 Dyspnea, unspecified; I10 Essential (primary) hypertension; D72.829 Elevated white blood cell count, unspecified; E11.9 Type 2 diabetes mellitus without complications; J18.9 Pneumonia, unspecified organism
CPT/HCPCS: 36415; 71045; 71260; 80053; 81001; 82150; 82805; 83605; 83690; 83735; 83880; 84484; 85025; 85610; 85730; 87040; 93005; 93041; 94760; 96360; 96365; 96374; 96375; 99285; J0610; J2543; A9270-GY

== ENCOUNTER 2020-03-31 08:20 | Emergency (ER) | payer MEDICARE ==
[2020-03-31] MEDS ORDERED: SODIUM BICARBONATE 50 MEQ/50 ML ABBOJECT IV ONE (08:21)
[2020-03-31] MEDS ORDERED: D50W 50 ml Abboject IV ONE (08:21)
[2020-03-31] MEDS ORDERED: CALCIUM CHLORIDE 10% 1000 MG IJ ONE (08:21)
[2020-03-31] MEDS ORDERED: EPINEPHRINE ABBOJECT 1 MG IV ONE (08:21)
[2020-03-31] MEDS ORDERED: CALCIUM CHLORIDE 10% 1000 MG ONE (08:42)
[2020-03-31] MEDS ORDERED: HUMULIN R ONE (08:51)
[2020-03-31 09:05] LABS: A-aADO2 546; ABG HEMOGLOBIN 12.8; ARTERIAL BLD GAS O2 SATURATION 78.1 % (95-100); ARTERIAL BLOOD GAS BASE EXCESS -10.5 (-2.0-2.0); ARTERIAL BLOOD GAS FIO2 100 %; ARTERIAL BLOOD GAS PO2 60 mmHg (75-100); ARTERIAL BLOOD GAS pH 7.02 (7.35-7.45); CARBOXYHEMOGLOBIN 1.2 % THgb (0.0-6.9); Glucose,Critical Care 285 (70-110); HCO3- 22.2 (22-28); HGB O2 SAT 77.1 g/dF (94-100); Lactic Acid 12.8 (0.4-2.0); Methhemoglobin 0.2 % (1.4-1.5)
[2020-03-31 09:06] LABS: ABG POTASSIUM 8.4 (3.5-5.1); ARTERIAL BLOOD GAS PCO2 86 mmHg (35-45)
[2020-03-31 09:07] LABS: ALLEN TEST OK? no
--- NOTE | 2020-03-31 09:32 | ERPHSYRPT ---
- History of Present Illness Time Seen by Provider: 03/31/20 08:20 Source: EMS Exam Limitations: clinical condition Physician History: 84 years old is brought in the ER with CPR in progress by EMS. EMS report patient was in severe respiratory distress on their arrival at home, was placed on oxygen and on the way to the ER patient was in full arrest, CPR was started almost 4 minutes prior to arrival. Patient had no pulse or cardiac activity on presentation, promptly intubated and CPR was continued as per ACLS protocol with multiple rounds of epi, bicarb. Blood gas showed acidosis and potassium of 8.4, given IV calcium chloride with no return of spontaneous circulation. Throughout stay in the ER patient rhythm was asystole. Family also report patient was admitted multiple times recently for respiratory problems. Allergies/Adverse Reactions: No Known Drug Allergies Allergy (Verified 07/10/17 19:03) Home Medications: Albuterol Sulfate [Proair Hfa] 8.5 gm IH DAILY 03/29/19 [History] Budesonide/Formoterol Fumarate [Symbicort 160-4.5 Mcg Inhaler] 10.2 gm IH DAILY 03/29/19 [History] Diltiazem HCl [Cartia Xt] 180 mg PO BID 03/29/19 [History] Ipratropium/Albuterol Sulfate [Combivent Inhaler] 15 gm IH DAILY 03/29/19 [History] Metformin HCl [Fortamet] 500 mg PO DAILY 03/29/19 [History] Metoprolol Tartrate 25 mg PO DAILY 03/29/19 [History] Omeprazole 10 mg PO DAILY 03/29/19 [History] predniSONE [Prednisone] 10 mg PO DAILY 03/29/19 [History] Hx Tetanus, Diphtheria Vaccination/Date Given: Yes Hx Influenza Vaccination/Date Given: Yes Hx Pneumococcal Vaccination/Date Given: Yes - Review of Systems All Other Systems: Unable due to condition - Past Medical History Pertinent Past Medical History: Yes Neurological History: No Pertinent History ENT History: Macular Degeneration Cardiac History: Arrhythmia, Hypertension Respiratory History: Other Endocrine Medical History: Diabetes Type II Musculoskeletal History: Fractures GI Medical History: GERD History: No Pertinent History Psycho-Social History: No Pertinent History Male Reproductive Disorders: No Pertinent History Other Medical History: HE IS LEGALLY BLIND WITH MACULAR DEGENERATION. HE CAN SEE 3 TO 4 FEET IN FRONT OF HIM ONLY. - Past Surgical History Past Surgical History: Yes Neuro Surgical History: No Pertinent History Cardiac: Other Respiratory: No Pertinent History Gastrointestinal: No Pertinent History Genitourinary: No Pertinent History Musculoskeletal: No Pertinent History Male Surgical History: No Pertinent History Other Surgical History: rt femoral vein ruptured--1960's - Social History Smoking Status: Former smoker How long have you smoked: 30 yrs Exposure to second hand smoke: No Drug Use: none Patient Lives Alone: No - Physical Exam General Appearance: other (Unconscious) Eye Exam: other (Fixed dilated 5 mm pupils) Ears, Nose, Throat Exam: other (Mottling of upper body including face/upper chest) Neck Exam: other (Puffiness in the neck with mottling) Respiratory Exam: diminished breath sounds Cardiovascular Exam: other (No palpable pulses or heart sounds ) Gastrointestinal/Abdomen Exam: soft, No distention Extremity Exam: other (Cool clammy extremities) Neurologic Exam: other (Abnormal tone), No patrol agent II-XII nml as tested Skin Exam: cyanosis SpO2 Interpretation: hypoxic, airway management int. O2 Delivery: Ambu-Bag Procedures - Intubation Intubation Indications: cardiac arrest, respiratory arrest Intubation Method: glidescope Tube Size (cm): 7.5 Endotracheal Tube Confirmation: positive end tidal CO2, good rise & fall of chest Intubation Complications: no complications Performed By: ED Physician Ordered Tests: Active Orders 24 hr Category Date Time Status ABG [ARTERIAL BLOOD GASES] Stat Lab 03/31/20 08:37 Completed Glucose,Critical Care Stat Lab 03/31/20 08:37 Completed Lactic Acid Stat Lab 03/31/20 08:37 Completed Intubation [Ventilator Management] STAT RT 03/31/20 09:38 Completed Standby STAT RT 03/31/20 09:39 Active Medication Summary Discontinued Medications Generic Name Dose Route Start Last Admin Trade Name Freq PRN Reason Stop Dose Admin Calcium Chloride Confirm 03/31/20 08:42 Calcium Chloride 10% 1000 Mg Administered 03/31/20 08:43 Dose 2,000 mg .ROUTE .STK-MED ONE Insulin Human Regular Confirm 03/31/20 08:51 Humulin R Administered 03/31/20 08:52 Dose 10 unit .ROUTE .STK-MED ONE Lab/Rad Data: Laboratory Results 03/31/20 Range/Units 08:37 Puncture Site left fem pCO2 86 H* (35-45) mmHg pO2 60 L (75-100) mmHg Base Excess -10.5 L (-2.0-2.0) O2 Saturation 77.1 L (94-100) g/dF ABG pH 7.02 L* (7.35-7.45) ABG HCO3 22.2 (22-28) ABG O2 Sat (Measured) 78.1 L (95-100) % Ren Test no A-a Gradient 546 a/A Ratio 0.10 Hemoglobin 12.8 Carboxyhemoglobin 1.2 (0.0-6.9) % THgb Methemoglobin 0.2 L (1.4-1.5) % Potassium 8.4 H* (3.5-5.1) Glucose 285 H (70-110) Temperature 37.0 C POC O2 Flow Rate 100 % Lactic Acid 12.8 H (0.4-2.0) - Progress Progress: unchanged Progress Note: 03/31/20 09:42 84 years old is brought in the ER with CPR in progress. Patient is probably intubated. ACLS protocol followed. No return of spontaneous circulation. ABG showed acidosis with a potassium of 8.4. Given hyperkalemia protocol meds with no response. Downtime is more than 40 minutes with no response and cyanosis of extremities and upper body/face. Discussed with son who has watched his father getting CPR and wanted to stop it. CPR stopped as per his wishes, no spontaneous respiratory effort and no cardiac activity seen on the monitor with a straight line. He is pronounced. - Departure Departure Disposition: Clinical Impression: Cardiac arrest, Hyperkalemia Condition: Critical Care Time: Yes Critical Care Time(excluding separately billable procedures): Critical 30-74 mins Referrals: PANCHITO LARA [Primary Care Provider] -
[2020-03-31 10:27] VITALS: BP 0/0; PULSE 0; O2SAT 0
[2020-03-31] MEDS ORDERED: Lasix 40 MG/4 ML ONE (12:42)
== END 2020-03-31 14:00 | disposition expired ==
LOC: ED 08:20
DX: I46.9 Cardiac arrest, cause unspecified (principal); E87.5 Hyperkalemia; E11.9 Type 2 diabetes mellitus without complications; I10 Essential (primary) hypertension; Z79.899 Other long term (current) drug therapy
CPT/HCPCS: 31500; 36600; 82375; 82803; 82947; 83605; 94770; 94799; 99284; 99291; J0171; J1815; J1940